=== PATIENT | male | born 1950 | race Caucasian/White ===

== ENCOUNTER → 2016-04-23 | Outpatient (CLI) | payer MEDICARE ==
[~2016-04-23] MED LIST: *XRAY -; /WARF5TA; ACET65TA; ALBUTEROL INHALATION; AMIT100T; AMITRIP100 PO; AMITRIP50 PO; BPMONITOR; DYAZ37.5; LEVAQUI250 PO; LODINE; LODINE PO; LOVENOX; MAXZIDE25 PO; OMEP20TA7; OXYCODONE IR; OXYIR5 PO; PRILOSEC20 PO; PROV90AE; VARE05TA; ZANTAC150 PO; ZANTAC300 PO; ZITHROZPAK PO; [UNRECOGNIZED DRUG - CODE] PO
--- NOTE | 2016-04-23 14:50 | RADONC ---
RADIATION ONCOLOGY CONSULTATION NOTE DATE: 04/23/2016 DIAGNOSIS: Prostate cancer. STAGE: Stage IV, [id number]. ECOG PERFORMANCE STATUS: 1 CONSULTATION NOTE: Mr. Mackenzie is a pleasant 65-year-old white male with the diagnosis of a high-risk poorly differentiated Marco A score 9 (5-4) adenocarcinoma of the prostate involving every core and every portion of every core of the biopsy site with a PSA level of 140. He is presenting today for discussion of definitive external beam radiation therapy with IMRT/IGRT combined with androgen deprivation therapy. HISTORY OF PRESENT ILLNESS: The patient was in his usual state of health but began developing urinary retention symptoms and obstructive symptoms. He was seen by his urologist and a PSA was done on 02/24/2016, which was found to be 140. On 03/17/2016 the patient underwent prostatic the biopsy and every single core was involved with highly aggressive prostatic adenocarcinoma. The majority of them were Hume score 9 (5-4) with a few Marco A score 9 (4-5) specimens. Tumor involved the entire core of all specimens. The patient had a bone scan done on 03/27/2016 which showed some scattered arthritic uptake without compelling evidence of metastatic disease. I have a CT scan done on 03/20/2016 which does not mention lymphadenopathy. Dr. Darnell's note however mentions that there was possibly a 2 cm left-sided iliac lymph node. That would make this a stage IV high-grade high-risk malignancy, [id number]. PAST MEDICAL HISTORY: The patient's past medical history is positive for some type of jaundice/hepatitis event as a child. He also has a history of arthritis. He reports that he had a stroke 8 years ago. He has hypertension, diabetes and multiple urinary tract infections. He has had some hematuria. He has had knee replacements in the past. He had three surgeries on the right hand. He had a tonsillectomy and an appendectomy in the past. He reports that he has a metal plate in his chest. ALLERGIES: The patient has no known drug allergies. SOCIAL HISTORY: The patient had smoked 3 packs of cigarettes a day for 45 years. He quit in 2007. He does not abuse alcohol. FAMILY HISTORY: The patient's family history is positive for sister with some kind of cancer. There is no family history of prostate cancer. REVIEW OF SYSTEMS: The patient's review of systems is positive for physical limitations. This may be due to his excess weight and arthritis. He reports some occasional dizziness and some loss of vision. He also some hearing loss, generalized aches and pains, shortness of breath, difficulty initiating and completing urination as well as some burning upon urination. He also has occasional hematuria. His bowel movements are within normal limits. PHYSICAL EXAMINATION: The patient is a well-developed, well-nourished male in no acute distress. HEENT exam is normocephalic, atraumatic. Extraocular movements are intact. There is no palpable cervical, supraclavicular, infraclavicular, axillary, or inguinal lymphadenopathy present. Lungs are clear to auscultation and percussion. Heart has a regular rate and rhythm. Abdomen is benign with no hepatosplenomegaly, masses, or tenderness. Rectal examination reveals a normal anal sphincter tone. His prostate is smooth with no evidence of nodularity. Skeletal examination reveals no tenderness to pressure or percussion of the bony skeleton. Extremities reveal no clubbing, cyanosis, or edema. Neurologic exam is grossly intact as is the remainder of the physical examination. MEDICAL NECESSITY: IMRT/IGRT is clinically indicated for the highly conformal dose planning required. The target volume is in close proximity to critical structures, such as the rectum, bladder, small bowel, and femoral heads. The volume of interest must be covered with narrow margins to adequately protect immediately adjacent structures. The plan requires interpretation of complex testing such as CT localization. As noted above, special planning (IMRT) and localizing (IGRT) is required and essential to maximally protect sensitive normal tissue structures which cannot be accomplished using conventional 3-dimensional planning. IMAGING: I personally reviewed the patient's CT scan of the abdomen and pelvis done on 03/20/2016 which does show an enlarged prostate with ill-defined borders that appear to be pressing on the bladder. ASSESSMENT: I do believe the patient is a candidate for external beam radiation therapy with IMRT/IGRT and I have so informed him. I have discussed with the patient in detail the potential benefits as well as possible acute and chronic sequelae of external beam radiation therapy. We have discussed the logistics of treatment planning, simulation, and subsequent fractionated daily radiation treatments. I specifically believe in this patient that IMRT/IGRT would be of benefit. We will need to treat the patient's lymph nodes, especially in light of the possibly enlarged lymph node in the iliac chain. This would bring the radiation into close proximity of small bowel and other normal structures. In order to minimize damage to those structures, IMRT with IGRT will be necessary. A much better dose distribution can be achieved with this versus 3D conformal treatments. I have referred the patient back to Dr. Darnell for placement of fiducial markers and radiation treatment planning will begin subsequently. He has already begun his androgen deprivation therapy with a Lupron shot on April 12. Thank you for allowing us to participate in the care of this very pleasant gentleman. If I could be of any further assistance or provide you with any information, please free to contact me at anytime. cc: MD Albert Floyd
== END ==
LOC: M ONCR 09:52
PROVIDERS: ATTEND Radiology Radiation Oncology
DX: C61 Malignant neoplasm of prostate (principal)

== ENCOUNTER → 2016-05-05 | Outpatient (CLI) | payer MEDICARE ==
--- NOTE | 2016-05-05 11:00 | REP ---
Transrectal prostate sonography: History: Prostate cancer. Fiducial marker placement. Findings: Transrectal prostate sonographic guidance is provided Dr. Darnell who presents placed prostate fiducial markers with transrectal ultrasound guided approach. Signed by Francisco Lopez MD 05/05/2016 10:50 A
== END ==
LOC: M SMT 08:50
PROVIDERS: ATTEND Urology
DX: C61 Malignant neoplasm of prostate (principal)
CPT/HCPCS: 55876; 76872; A4648

== ENCOUNTER 2016-05-20 15:59 | Outpatient (RCR) | payer MEDICARE ==
--- NOTE | 2016-05-22 08:12 | RADONC ---
RADIATION ONCOLOGY SIMULATION NOTE DATE: 05/20/2016 CHART NUMBER: [id number] Mr. Mackenzie was taken to the CT scan for CT simulation of his prostate field. CT was accomplished without difficulty or discomfort. Radiation treatment planning is underway and radiation treatments will begin subsequently. An immobilization device was created again without difficulty or discomfort. It will be used throughout the course of treatment. I was physically present throughout the course of CT simulation.
== END 2016-05-26 ==
LOC: M ONCR 15:59
PROVIDERS: ATTEND Radiology Radiation Oncology
DX: C61 Malignant neoplasm of prostate (principal)

== ENCOUNTER → 2016-05-20 | Outpatient (CLI) | payer MEDICARE | LOC: M RAD 13:51 | PROVIDERS: ATTEND Radiology Radiation Oncology | DX: C61 Malignant neoplasm of prostate (principal) ==

== ENCOUNTER 2016-05-27 10:53 | Outpatient (RCR) | payer MEDICARE ==
--- NOTE | 2016-06-02 08:03 | RADONC ---
RADIATION ONCOLOGY PROGRESS NOTE DATE: 06/01/2016 Mr. Mackenzie is presently at a dose of 360 cGy to his prostate and is tolerating treatments quite well at this point with no complaints related to his radiation therapy. He is having no urinary or bowel difficulties and no bone pain. The patient's review of systems is noncontributory. He denies nausea, vomiting, fevers, chills, night sweats, diplopia, headaches, anxiety or depression, anorexia, weight loss, visual disturbances, chest pain, urinary or bowel difficulties, bone pain, or neurological problems. PHYSICAL EXAMINATION: The patient's skin is in good condition with no evidence of radiation change present. There is no moist or dry desquamation. The remainder of his physical exam remains unchanged. Mr. Mackenzie is tolerating treatments quite well and radiation will continue as scheduled.
--- NOTE | 2016-06-08 12:48 | RADONC ---
RADIATION ONCOLOGY PROGRESS NOTE DATE: 06/08/2016 CHART NUMBER: [id number] Mr. Mackenzie is presently at a dose at of 1260 cGy to his prostate and is tolerating treatments quite well at this point. The patient reports an increase in urinary hesitancy. He says he is still able to empty his bladder but the stream is rather slow. The patient has no other complaints related to his radiation therapy or disease. He is having no bowel problems. The patient's review of systems is positive for urinary hesitancy but is otherwise noncontributory. He denies nausea, vomiting, fevers, chills, night sweats, diplopia, headaches, anxiety or depression, anorexia, weight loss, visual disturbances, chest pain, bowel difficulties, bone pain, or neurological problems. PHYSICAL EXAMINATION: The patient's skin is in good condition with no evidence of radiation change present. There is no moist or dry desquamation. The remainder of his physical exam remains unchanged. Mr. Mackenzie is tolerating treatments quite well and radiation will continue as scheduled.
[2016-06-11] MEDS ORDERED: DEXA2TA PO (09:39)
--- NOTE | 2016-06-22 10:53 | RADONC ---
RADIATION ONCOLOGY PROGRESS NOTE: DATE: 06/22/2016 CHART NO: [id number] Mr. Mackenzie is presently at a dose of 2340 cGy to his prostate and is tolerating treatments quite well at this point with no complaints related to his radiation therapy. He is having no significant urinary problems now on Decadron. He is having no bowel difficulties. No bone pain. REVIEW OF SYSTEMS: The patient's review of systems is noncontributory. He denies nausea, vomiting, fevers, chills, night sweats, diplopia, headaches, anxiety or depression, anorexia, weight loss, visual disturbances, chest pain, urinary or bowel difficulties, bone pain, or neurological problems. PHYSICAL EXAMINATION: The patient's skin is in good condition with no evidence of radiation change present. There is no moist or dry desquamation. The remainder of his physical exam remains unchanged. Mr. Mackenzie is tolerating treatments quite well and radiation will continue as scheduled. He is having no difficulties now on steroids and we will continue him on that for the present time.
== END 2016-06-26 ==
LOC: M ONCR 10:53
PROVIDERS: ATTEND Radiology Radiation Oncology
DX: C61 Malignant neoplasm of prostate (principal)

== ENCOUNTER → 2016-06-09 | Outpatient (CLI) | payer MEDICARE ==
[~2016-06-09] MED LIST changes: +DEXA2TA PO
== END ==
LOC: M ONCR 10:15
PROVIDERS: ATTEND Radiology Radiation Oncology
DX: C61 Malignant neoplasm of prostate (principal); R30.0 Dysuria

== ENCOUNTER 2016-06-29 08:51 | Outpatient (RCR) | payer OTHER, MEDICARE ==
--- NOTE | 2016-06-30 07:37 | RADONC ---
RADIATION ONCOLOGY PROGRESS NOTE DATE: 06/29/2016 CHART NUMBER: [id number]. PROGRESS NOTE: Mr. Mackenzie is presently at a dose of 3240 cGy to his prostate and is tolerating treatments quite well at this point with no significant difficulties related to his radiation therapy. He is urinating without difficulty. He does have some hematuria. REVIEW OF SYSTEMS: The patient's review of systems is positive for hematuria. He is also using some Decadron in order to continue to pee without difficulty. His review of systems is otherwise noncontributory. Denies nausea, vomiting, fevers, chills, night sweats, diplopia, headaches, anxiety or depression, anorexia, weight loss, visual disturbances, chest pain, urinary or bowel difficulties, bone pain, or neurological problems. She denies standard review of systems. PHYSICAL EXAMINATION: The patient's skin is in good condition with no evidence of radiation change present. There is no moist or dry desquamation. The remainder of his physical exam remains unchanged. Mr. Mackenzie is tolerating treatments quite well and radiation will continue as scheduled.
--- NOTE | 2016-07-07 07:00 | RADONC ---
RADIATION ONCOLOGY PROGRESS NOTE DATE: 07/06/2016 CHART NUMBER: [id number]. PROGRESS NOTE: Mr. Mackenzie is presently at a dose of 4140 cGy to his prostate and is tolerating treatments quite well at this point with no complaints related to his radiation therapy. He is having no urinary or bowel difficulties and no bone pain. REVIEW OF SYSTEMS: The patient's review of systems is noncontributory. Denies nausea, vomiting, fevers, chills, night sweats, diplopia, headaches, anxiety or depression, anorexia, weight loss, visual disturbances, chest pain, urinary or bowel difficulties, bone pain, or neurological problems. PHYSICAL EXAMINATION: The patient's skin is in good condition with no evidence of radiation change present. There is no moist or dry desquamation. The remainder of his physical exam remains unchanged. Mr. Mackenzie is tolerating treatments quite well and radiation will continue as scheduled.
--- NOTE | 2016-07-13 10:01 | RADONC ---
RADIATION ONCOLOGY PROGRESS NOTE DATE: 07/13/2016 CHART NUMBER: [id number] Mr. Mackenzie is presently at a dose of 5040 cGy to his prostate and is tolerating treatments quite well at this point with no complaints related to his radiation therapy. He is having no urinary or bowel difficulties and no bone pain at this time. His hematuria resolved once he stopped taking aspirin. REVIEW OF SYSTEMS: The patient's review of systems is noncontributory. Denies nausea, vomiting, fevers, chills, night sweats, diplopia, headaches, anxiety or depression, anorexia, weight loss, visual disturbances, chest pain, urinary or bowel difficulties, bone pain, or neurological problems. PHYSICAL EXAMINATION: The patient's skin is in good condition with no evidence of moist or dry desquamation. The remainder of his physical exam remains unchanged. Mr. Mackenzie is tolerating treatments quite well and radiation will continue as scheduled.
--- NOTE | 2016-07-21 09:18 | RADONC ---
RADIATION ONCOLOGY PROGRESS NOTE DATE: 07/20/2016 CHART NUMBER: [id number] Mr. Mackenzie is presently at a dose of 5940 cGy to his prostate and is tolerating treatments quite well at this point with no complaints related to his radiation therapy. He is having no urinary or bowel difficulties and no bone pain. REVIEW OF SYSTEMS: The patient's review of systems is noncontributory. He denies nausea, vomiting, fevers, chills, night sweats, diplopia, headaches, anxiety or depression, anorexia, weight loss, visual disturbances, chest pain, urinary or bowel difficulties, bone pain or neurological problems. PHYSICAL EXAMINATION The patient's skin is in good condition with no evidence of moist or dry desquamation. The remainder of the physical exam remains unchanged. Mr. Mackenzie is tolerating treatments quite well and radiation will continue as scheduled.
== END 2016-07-26 ==
LOC: M ONCR 08:51
PROVIDERS: ATTEND Radiology Radiation Oncology
DX: C61 Malignant neoplasm of prostate (principal)

== ENCOUNTER → 2016-07-20 | Outpatient (REF) | payer MEDICARE, OTHER | LOC: M LABDRAWC 16:32 | PROVIDERS: ATTEND Urology | DX: C61 Malignant neoplasm of prostate (principal) ==

== ENCOUNTER → 2016-07-20 | Outpatient (REF) | payer MEDICARE, OTHER ==
[2016-07-21 12:21] LABS: ALBUMIN 3.4 GM/DL (3.2-5.2); ALBUMIN/GLOBULIN RATIO 0.74 (1.00-1.93); BILIRUBIN,TOTAL 0.6 MG/DL (0.2-1.0); CALCIUM LEVEL 9.4 MG/DL (8.8-10.2); CREATININE FOR GFR 1.34 MG/DL (0.70-1.30); GLOMERULAR FILTRATION RATE 56.4 (>49); POTASSIUM SERUM 3.5 MEQ/L (3.5-5.1)
== END ==
LOC: M SFHCCLAY 14:29
PROVIDERS: ATTEND Family Medicine
DX: E11.9 Type 2 diabetes mellitus without complications (principal); E78.00 Pure hypercholesterolemia, unspecified
CPT/HCPCS: 36415; 80053; 80061; 83036; 84153; G0463

== ENCOUNTER 2016-07-27 11:28 | Outpatient (RCR) | payer OTHER, MEDICARE ==
--- NOTE | 2016-07-28 07:42 | RADONC ---
RADIATION ONCOLOGY PROGRESS NOTE DATE: 07/27/2016 CHART NUMBER: [id number] Mr. Mackenzie is presently at a dose of 6660 cGy to his prostate and is tolerating treatments quite well at this point with no significant difficulties related to his radiation therapy. He is having no urinary or bowel difficulties and no bone pain. The patient's review of systems is noncontributory. He denies nausea, vomiting, fevers, chills, night sweats, diplopia, headaches, anxiety or depression, anorexia, weight loss, visual disturbances, chest pain, urinary or bowel difficulties, bone pain, or neurological problems. PHYSICAL EXAMINATION: The patient's skin is in good condition with no evidence of moist or dry desquamation. The remainder of his physical exam remains unchanged. Mr. Mackenzie is tolerating treatments quite well and radiation will continue as scheduled.
--- NOTE | 2016-08-03 11:24 | RADONC ---
RADIATION ONCOLOGY PROGRESS NOTE: DATE: 08/03/2016 CHART NO: [id number] Mr. Mackenzie is presently at a dose of 7560 cGy to his prostate and is tolerating treatments quite well at this point with no significant difficulties related to his radiation therapy other than some minimal hematuria and blood in the stools. He reports that there are no blood clots and he only has some slight blood in the urine when urinating or on the toilet tissue. He is having no pain or discomfort. The patient's review of symptoms is positive for his above-mentioned bleeding but is otherwise noncontributory. He denies nausea, vomiting, fevers, chills, night sweats, diplopia, headaches, anxiety or depression, anorexia, weight loss, visual disturbances, chest pain, urinary or bowel difficulties, bone pain, or neurological problems. PHYSICAL EXAMINATION: The patient's skin is in good condition with no evidence of radiation change present. The remainder of his physical exam remains unchanged. Mr. Mackenzie is tolerating treatments quite well and radiation will continue as scheduled.
--- NOTE | 2016-08-05 12:54 | RADONC ---
RADIATION ONCOLOGY TREATMENT SUMMARY DATE: 08/05/2016 CHART NUMBER: [id number] DIAGNOSIS: Prostate cancer stage IV, [id number]. ECOG PERFORMANCE STATUS: 1. TREATMENT SUMMARY: Mr. Mackenzie is a very pleasant 66-year-old white male with the diagnosis what appears to be a high-risk poorly differentiated Marco A score 9 (5-4) adenocarcinoma of the prostate involving every core and every portion of every core of the biopsy site with a PSA level of 140. The patient presented to us for consideration of definitive external beam radiation therapy. We treated the patient to his prostate for a total dose of 7920 cGy delivered in 44 fractions of 180 cGy each over 69 elapsed days from 05/28/2016 through 08/05/2016. The patient's prostate was treated on a linear accelerator utilizing IMRT/IGRT. We initially delivered a dose of 4500 cGy to the prostate, seminal vesicle and first echelon of lymph nodes. This was treated utilizing an 18 MV photon beam. We subsequently coned down to the prostate and seminal vesicles themselves for an additional 900 cGy delivered in five fractions of 180 cGy each, bringing the seminal vesicles to a total dose of 5400 cGy. This was also treated utilizing an 18 MV photon beam. We subsequently coned down to the prostate itself for the remaining 14 fractions to deliver an additional 2520 cGy. This final boost was treated utilizing a 6 MV photon beam. Once again, it brought the prostate to a total dose of 7920 cGy in 44 fractions. Mr. Mackenzie tolerated his treatments quite well and was able to complete therapy as prescribed without interruption. I have scheduled the patient to be seen by me again in 1 month for further followup. He will continue to be followed by his other physicians as well. Thank you for allowing us to participate in the care of this very pleasant gentleman. If I could be of any further assistance or provide you with any further information, please free to contact me anytime. As always warm regards. cc: MD Albert Floyd
== END 2016-08-26 ==
LOC: M ONCR 11:28
PROVIDERS: ATTEND Radiology Radiation Oncology
DX: C61 Malignant neoplasm of prostate (principal)

== ENCOUNTER → 2016-08-28 | Outpatient (REF) | payer MEDICARE, OTHER | LOC: M LABDRAWC 16:29 | PROVIDERS: ATTEND Radiology Radiation Oncology | DX: C61 Malignant neoplasm of prostate (principal) ==

== ENCOUNTER → 2016-09-02 | Outpatient (CLI) | payer MEDICARE, OTHER ==
--- NOTE | 2016-09-03 09:46 | RADONC ---
RADIATION ONCOLOGY FOLLOWUP NOTE DATE: 09/02/2016 CHART NUMBER: [id number] DIAGNOSIS: Prostate cancer STAGE: IV, [id number]. ECOG performance status one. FOLLOWUP NOTE: Mr. Mackenzie is a pleasant 66-year-old white male with the diagnosis of a high-risk poorly differentiated Lamont score 9 (5-4) adenocarcinoma of prostate with a PSA level that was 140 who is presenting to us today for routine followup visit 1 month post completion of external beam radiation therapy. The patient presents today reporting that he is continuing with his Decadron taper. He had initiated Decadron due to difficulties with urination at time of treatment. I had originally given him a Decadron taper and thought that he would be finished with his Decadron at this point. Apparently, the patient had some type of flare up while trying to cut down on Decadron and they stepped back up previous doses. I have given the patient once again instructions to taper the Decadron at this point. I am concerned since he is a diabetic and his blood sugars have been elevated by the Decadron. He and his are aware of these issues and will let me know if they have any further difficulties while withdrawing from Decadron so further instructions can be given as indicated. In addition, the patient had a large subcutaneous cystic-like mass for quite sometime. Apparently, a few days ago he either lanced it or forced it to break open. His has been applying topical antibiotics and Betadine to the region , but there is now a significant cavity present which is quite red and clearly inflamed. He has no other complaints at this time related to his radiation disease or other issues. The patient's review of systems is otherwise noncontributory except for the above. He denies nausea, vomiting, fevers, chills, night sweats, diplopia, headaches, anxiety or depression, anorexia, weight loss, visual disturbances, chest pain, urinary difficulties while on tapering steroids or bowel difficulties. He has no neurological problems. PHYSICAL EXAMINATION: The patient is a well-developed, well-nourished male in no acute distress. HEENT exam is normocephalic, atraumatic. Extraocular movements are intact. There is no palpable cervical, supraclavicular, infraclavicular, axillary, or inguinal lymphadenopathy present. Lungs are clear to auscultation and percussion. Heart has a regular rate and rhythm. Abdominal examination reveals an open wound which appears to enter into his previously large cystic area. There is erythema and bruising extending for several centimeters over the abdomen. It is warm to the touch. Rectal examination reveals a normal anal sphincter tone. His prostate is smooth with no evidence of nodularity. Skeletal examination reveals no tenderness to pressure or percussion of the bony skeleton. Extremities reveal no clubbing, cyanosis, or edema. Neurologic exam is grossly intact, as is the remainder of the physical examination. ASSESSMENT: The patient is clinically doing well with regards to his prostate cancer. As mentioned above, I have given the patient a further Decadron taper schedule and asked him to break up his pills in two and do one half a pill every other day for the next week and then try and discontinue totally. I have asked to continue to monitor his blood sugars throughout this course and keep a close followup with his primary care doctor. If he has any further difficulty with urination once off the Decadron, I have informed them that I will be sending them back to the urologist to obtain his expert opinion as well. I am most concerned at this time about his clearly inflamed abdominal subcutaneous cavity. This patient is a diabetic and this needs immediate attention. In light of the fact that he is being managed closely by Dr. Dove, we have set him up to be seen in Dr. Dove's office later today for immediate evaluation of this region. I will defer care to this abdominal issue and his diabetes to his primary care doctor, Dr. Dove. I did instruct the patient to contact me immediately if there are any difficulties or if he does not see Dr. Dove. I also encouraged him to go to the emergency room if his condition does not improve or worsens. He has my cell phone number and office number in case any issues should develop in the meantime. A PSA was done on 08/28/2016 and is now down to 5.12. cc: MD Albert Floyd MD MTDD
== END ==
LOC: M ONCR 11:15
PROVIDERS: ATTEND Radiology Radiation Oncology
DX: C61 Malignant neoplasm of prostate (principal)
CPT/HCPCS: 87070; 87077; 87186; G0463

== ENCOUNTER → 2016-09-02 | Outpatient (REF) | payer MEDICARE, OTHER | LOC: M SFHCCLAY 16:29 | PROVIDERS: ATTEND Family Medicine | DX: L02.211 Cutaneous abscess of abdominal wall (principal) ==

== ENCOUNTER → 2016-10-21 | Outpatient (REF) | payer MEDICARE, OTHER ==
[2016-10-21 19:45] LABS: ALBUMIN 3.1 GM/DL (3.2-5.2); ALBUMIN/GLOBULIN RATIO 0.78 (1.00-1.93); BILIRUBIN,TOTAL 0.6 MG/DL (0.2-1.0); CREATININE FOR GFR 1.36 MG/DL (0.70-1.30); GLOMERULAR FILTRATION RATE 55.5 (>49); POTASSIUM SERUM 3.6 MEQ/L (3.5-5.1); TOTAL PROTEIN 7.1 GM/DL (6.4-8.2)
== END ==
LOC: M SFHCCLAY 10:18
PROVIDERS: ATTEND Family Medicine
DX: E11.9 Type 2 diabetes mellitus without complications (principal)

== ENCOUNTER → 2016-11-27 | Outpatient (REF) | payer MEDICARE, OTHER ==
[2016-11-27 16:54] LABS: CREATININE FOR GFR 1.31 MG/DL (0.70-1.30); GLOMERULAR FILTRATION RATE 57.9 (>49); POTASSIUM SERUM 4.3 MEQ/L (3.5-5.1)
== END ==
LOC: M SFHCCLAY 11:18
PROVIDERS: ATTEND Family Medicine
DX: C61 Malignant neoplasm of prostate (principal); R60.0 Localized edema

== ENCOUNTER → 2016-12-02 | Outpatient (CLI) | payer MEDICARE, OTHER ==
--- NOTE | 2016-12-03 07:41 | RADONC ---
RADIATION ONCOLOGY FOLLOWUP NOTE DATE: 12/02/2016 CHART NUMBER: [id number]. DIAGNOSIS: Prostate cancer. STAGE: IV, [id number]. ECOG PERFORMANCE STATUS: Zero. FOLLOWUP NOTE: Mr. Mackenzie is a very pleasant, 66-year-old white male with the diagnosis of a high-risk poorly differentiated Marco A score 9 (5-4) adenocarcinoma of the prostate with a PSA level of 140, who is presenting to us today for routine followup visit 3 months post completion of external beam radiation therapy. The patient presents today reporting that he is doing quite well with no complaints at this time related to his radiation therapy or disease. He is having some cardiac difficulties. REVIEW OF SYSTEMS: The patient's review of systems is positive for tachycardia for which he is now taking medication. It is otherwise noncontributory. Denies nausea, vomiting, fevers, chills, night sweats, diplopia, headaches, anxiety or depression, anorexia, weight loss, visual disturbances, chest pain, urinary or bowel difficulties, bone pain, or neurological problems. PHYSICAL EXAMINATION: The patient is a well-developed, well-nourished male in no acute distress. HEENT exam is normocephalic, atraumatic. Extraocular movements are intact. There is no palpable cervical, supraclavicular, infraclavicular, axillary, or inguinal lymphadenopathy present. Lungs are clear to auscultation and percussion. Heart has a regular rate and rhythm. Abdomen is benign with no hepatosplenomegaly, masses, or tenderness. Rectal examination reveals a normal anal sphincter tone. His prostate is smooth with no evidence of nodularity. Skeletal examination reveals no tenderness to pressure or percussion of the bony skeleton. Extremities reveal no clubbing, cyanosis, or edema. Neurologic exam is grossly intact, as is the remainder of the physical examination. ASSESSMENT: The patient is clinically stable at this time and will be seen by us again in 6 months for further followup. He will also continue to be followed by his other physicians as well. cc: MD Albert Floyd MD
== END ==
LOC: M ONCR 10:01
PROVIDERS: ATTEND Radiology Radiation Oncology
DX: C61 Malignant neoplasm of prostate (principal)

== ENCOUNTER → 2017-02-11 | Outpatient (REF) | payer MEDICARE | LOC: M SMT 13:00 | PROVIDERS: ATTEND Nurse Practitioner Family | DX: R30.0 Dysuria (principal) | CPT/HCPCS: 51798; 81001; 87086; G0463 ==

== ENCOUNTER → 2017-03-11 | Outpatient (REF) | payer MEDICARE, OTHER | LOC: M SFHCCLAY 11:17 | PROVIDERS: ATTEND Urology | DX: C61 Malignant neoplasm of prostate (principal) ==

== ENCOUNTER → 2017-04-28 | Outpatient (REF) | payer MEDICARE, OTHER ==
[2017-04-28 18:30] LABS: ESTIMATED AVERAGE GLUCOSE 280 MG/DL (60-110); HEMOGLOBIN A1c 11.4 %
[2017-04-28 18:31] LABS: ALBUMIN 3.5 GM/DL (3.2-5.2); ALBUMIN/GLOBULIN RATIO 0.81 (1.00-1.93); ALKALINE PHOSPHATASE 186 U/L (45-117); ALT/SGPT 36 U/L (12-78); ANION GAP 8 MEQ/L (8-16); AST/SGOT 16 U/L (7-37); BILIRUBIN,TOTAL 0.7 MG/DL (0.2-1.0); BLOOD UREA NITROGEN 15 MG/DL (7-18); CARBON DIOXIDE LEVEL 31 MEQ/L (21-32); CHLORIDE LEVEL 96 MEQ/L (98-107); CREATININE FOR GFR 1.46 MG/DL (0.70-1.30); GLOMERULAR FILTRATION RATE 51.1 (>49); GLUCOSE, FASTING 396 MG/DL (70-100); POTASSIUM SERUM 3.7 MEQ/L (3.5-5.1); SODIUM LEVEL 135 MEQ/L (136-145); TOTAL PROTEIN 7.8 GM/DL (6.4-8.2)
== END ==
LOC: M SFHCCLAY 11:57
DX: E11.9 Type 2 diabetes mellitus without complications (principal)
CPT/HCPCS: 80053

== ENCOUNTER → 2017-05-04 | Outpatient (REF) | payer MEDICARE, OTHER | LOC: M SMT 13:04 | DX: R30.0 Dysuria (principal); C61 Malignant neoplasm of prostate; R35.0 Frequency of micturition | CPT/HCPCS: 87088; 87186 ==

== ENCOUNTER → 2017-05-19 | Outpatient (REF) | payer MEDICARE, OTHER | LOC: M LABSMT 11:20 | DX: N39.0 Urinary tract infection, site not specified (principal) | CPT/HCPCS: 87086 ==

== ENCOUNTER → 2017-06-14 | Outpatient (REF) | payer MEDICARE, OTHER ==
[2017-06-14 17:14] LABS: PROSTATIC SPECIFIC AG MONITOR 1.11 NG/ML (< 4.0)
== END ==
LOC: M LABDRAWC 16:09
DX: C61 Malignant neoplasm of prostate (principal)
CPT/HCPCS: 84153

== ENCOUNTER → 2017-06-16 | Outpatient (CLI) | payer MEDICARE, OTHER | LOC: M ONCR 09:58 | DX: Z08 Encounter for follow-up examination after completed treatment for malignant neoplasm (principal); Z85.46 Personal history of malignant neoplasm of prostate | CPT/HCPCS: G0463 ==

== ENCOUNTER → 2017-07-12 | Outpatient (REF) | payer MEDICARE, OTHER ==
[2017-07-12 12:13] LABS: ANION GAP 9 MEQ/L (8-16); BLOOD UREA NITROGEN 19 MG/DL (7-18); CALCIUM LEVEL 9.1 MG/DL (8.8-10.2); CARBON DIOXIDE LEVEL 28 MEQ/L (21-32); CHLORIDE LEVEL 98 MEQ/L (98-107); CREATININE FOR GFR 1.38 MG/DL (0.70-1.30); GLOMERULAR FILTRATION RATE 54.4 (>49); GLUCOSE, FASTING 320 MG/DL (70-100); POTASSIUM SERUM 4.2 MEQ/L (3.5-5.1); SODIUM LEVEL 135 MEQ/L (136-145)
[2017-07-12 15:29] LABS: ESTIMATED AVERAGE GLUCOSE 263 MG/DL (60-110); HEMOGLOBIN A1c 10.8 %
== END ==
LOC: M SFHCCLAY 09:26
DX: E11.9 Type 2 diabetes mellitus without complications (principal)
CPT/HCPCS: 83036

== ENCOUNTER → 2017-10-11 | Outpatient (REF) | payer MEDICARE, OTHER ==
[2017-10-11 17:12] LABS: ALBUMIN 3.1 GM/DL (3.2-5.2); ALBUMIN/GLOBULIN RATIO 0.76 (1.00-1.93); ALKALINE PHOSPHATASE 124 U/L (45-117); ALT/SGPT 34 U/L (12-78); ANION GAP 12 MEQ/L (8-16); AST/SGOT 17 U/L (7-37); BILIRUBIN,TOTAL 0.9 MG/DL (0.2-1.0); BLOOD UREA NITROGEN 19 MG/DL (7-18); CALCIUM LEVEL 8.8 MG/DL (8.8-10.2); CARBON DIOXIDE LEVEL 26 MEQ/L (21-32); CHLORIDE LEVEL 100 MEQ/L (98-107); CHOLESTEROL LEVEL 140 MG/DL (<200); CHOLESTEROL RISK RATIO 3.111 (<5); CREATININE FOR GFR 1.27 MG/DL (0.70-1.30); GLOMERULAR FILTRATION RATE 59.9 (>49); GLUCOSE, FASTING 229 MG/DL (70-100); HDL CHOLESTEROL 45 MG/DL (>40); LDL CHOLESTEROL 59.2 MG/DL (<100); NON-HDL-C 95 MG/DL; POTASSIUM SERUM 4.4 MEQ/L (3.5-5.1); PROSTATIC SPECIFIC AG MONITOR 2.74 NG/ML (< 4.0); SODIUM LEVEL 138 MEQ/L (136-145); TOTAL PROTEIN 7.2 GM/DL (6.4-8.2); TRIGLYCERIDES LEVEL 179 MG/DL (<150)
[2017-10-11 17:17] LABS: CREATININE, URINE 55.3 MG/DL; MALB URINE SIEMENS 5.4 MG/L; MAU/CREAT RATIO 9.7 MCG/MG (0.0-30.0)
[2017-10-11 18:04] LABS: ESTIMATED AVERAGE GLUCOSE 243 MG/DL (60-110); HEMOGLOBIN A1c 10.1 %
== END ==
LOC: M SFHCCLAY 10:02
DX: C61 Malignant neoplasm of prostate (principal); E11.9 Type 2 diabetes mellitus without complications; E78.00 Pure hypercholesterolemia, unspecified
CPT/HCPCS: 80053

== ENCOUNTER → 2017-12-01 | Outpatient (CLI) | payer MEDICARE, OTHER | LOC: M ONCR 10:18 | DX: C61 Malignant neoplasm of prostate (principal) | CPT/HCPCS: G0463 ==

== ENCOUNTER → 2017-12-31 | Outpatient (REF) | payer MEDICARE, OTHER ==
[2017-12-31 16:46] LABS: ANION GAP 10 MEQ/L (8-16); BLOOD UREA NITROGEN 18 MG/DL (7-18); CALCIUM LEVEL 8.8 MG/DL (8.8-10.2); CARBON DIOXIDE LEVEL 28 MEQ/L (21-32); CHLORIDE LEVEL 97 MEQ/L (98-107); GLOMERULAR FILTRATION RATE 53.5 (>49); GLUCOSE, FASTING 329 MG/DL (70-100); POTASSIUM SERUM 4.2 MEQ/L (3.5-5.1); SODIUM LEVEL 135 MEQ/L (136-145)
[2017-12-31 17:02] LABS: TESTOSTERONE < 7 NG/DL (241-827)
== END ==
LOC: M LABSMT 11:01 → M LABDRAWC 11:08
DX: C61 Malignant neoplasm of prostate (principal)
CPT/HCPCS: 84403

== ENCOUNTER → 2018-01-05 | Outpatient (CLI) | payer MEDICARE, OTHER ==
[~2018-01-05] MED LIST changes: -*XRAY -; -/WARF5TA; -ACET65TA; -ALBUTEROL INHALATION; -AMIT100T; -AMITRIP100 PO; -AMITRIP50 PO; -BPMONITOR; -DEXA2TA PO; -DYAZ37.5; +ISOVUE-370 76% 100ML VIAL (Q9967) As Ordered; -LEVAQUI250 PO; -LODINE; -LODINE PO; -LOVENOX; -MAXZIDE25 PO; -OMEP20TA7; -OXYCODONE IR; -OXYIR5 PO; -PRILOSEC20 PO; -PROV90AE; -VARE05TA; -ZANTAC150 PO; -ZANTAC300 PO; -ZITHROZPAK PO; -[UNRECOGNIZED DRUG - CODE] PO
== END ==
LOC: M RAD 09:34
DX: R59.0 Localized enlarged lymph nodes (principal); K76.0 Fatty (change of) liver, not elsewhere classified; K80.00 Calculus of gallbladder with acute cholecystitis without obstruction; K43.9 Ventral hernia without obstruction or gangrene; R97.21 Rising PSA following treatment for malignant neoplasm of prostate
CPT/HCPCS: Q9967

== ENCOUNTER → 2018-01-11 | Outpatient (REF) | payer MEDICARE, OTHER ==
[2018-01-11 17:21] LABS: PROSTATIC SPECIFIC AG MONITOR 9.34 NG/ML (< 4.0)
== END ==
LOC: M LABSMT 11:34
DX: C61 Malignant neoplasm of prostate (principal)
CPT/HCPCS: 84153

== ENCOUNTER → 2018-01-17 | Outpatient (REF) | payer MEDICARE, OTHER ==
[2018-01-17 17:09] LABS: ALBUMIN 3.4 GM/DL (3.2-5.2); ALBUMIN/GLOBULIN RATIO 0.77 (1.00-1.93); ALKALINE PHOSPHATASE 191 U/L (45-117); ALT/SGPT 33 U/L (12-78); ANION GAP 10 MEQ/L (8-16); AST/SGOT 13 U/L (7-37); BILIRUBIN,TOTAL 0.7 MG/DL (0.2-1.0); BLOOD UREA NITROGEN 18 MG/DL (7-18); CALCIUM LEVEL 8.9 MG/DL (8.8-10.2); CARBON DIOXIDE LEVEL 29 MEQ/L (21-32); CHLORIDE LEVEL 96 MEQ/L (98-107); CREATININE FOR GFR 1.57 MG/DL (0.70-1.30); GLOMERULAR FILTRATION RATE 46.9 (>49); GLUCOSE, FASTING 368 MG/DL (70-100); POTASSIUM SERUM 3.6 MEQ/L (3.5-5.1); SODIUM LEVEL 135 MEQ/L (136-145); TOTAL PROTEIN 7.8 GM/DL (6.4-8.2)
[2018-01-17 17:22] LABS: ESTIMATED AVERAGE GLUCOSE 260 MG/DL (60-110); HEMOGLOBIN A1c 10.7 %
[2018-01-19 10:38] LABS: HEP C VIRUS AB SCREEN MEDICARE < 0.0 INDEX (<0.8)
== END ==
LOC: M SFHCCLAY 12:01
DX: E11.9 Type 2 diabetes mellitus without complications (principal); Z11.59 Encounter for screening for other viral diseases; Z23 Encounter for immunization
CPT/HCPCS: 80053

== ENCOUNTER → 2018-02-22 | Outpatient (REF) | payer MEDICARE, OTHER ==
[2018-02-22 17:14] LABS: PROSTATIC SPECIFIC AG MONITOR 2.3 NG/ML (< 4.0)
== END ==
LOC: M SFHCCLAY 11:28
DX: R97.21 Rising PSA following treatment for malignant neoplasm of prostate (principal)
CPT/HCPCS: 84153

== ENCOUNTER → 2018-04-12 | Outpatient (REF) | payer MEDICARE, OTHER ==
[~2018-04-12] MED LIST changes: +*XRAY -; +/WARF5TA; +ACET65TA; +ALBUTEROL INHALATION; +AMIT100T; +AMITRIP100 PO; +AMITRIP50 PO; +BPMONITOR; +DEXA2TA PO; +DYAZ37.5; -ISOVUE-370 76% 100ML VIAL (Q9967) As Ordered; +LEVAQUI250 PO; +LODINE; +LODINE PO; +LOVENOX; +MAXZIDE25 PO; +OMEP20TA7; +OXYCODONE IR; +OXYIR5 PO; +PRILOSEC20 PO; +PROV90AE; +VARE05TA; +ZANTAC150 PO; +ZANTAC300 PO; +ZITHROZPAK PO; +[UNRECOGNIZED DRUG - CODE] PO
== END ==
LOC: M SFHCCLAY 11:13
PROVIDERS: ATTEND Urology
DX: C61 Malignant neoplasm of prostate (principal)

== ENCOUNTER → 2018-04-25 | Outpatient (REF) | payer MEDICARE, OTHER ==
[2018-04-25 17:22] LABS: ALBUMIN 3.7 GM/DL (3.2-5.2); ALT/SGPT 26 U/L (12-78); BILIRUBIN,TOTAL 0.5 MG/DL (0.2-1.0); BLOOD UREA NITROGEN 14 MG/DL (7-18); CALCIUM LEVEL 9.4 MG/DL (8.8-10.2); CARBON DIOXIDE LEVEL 28 MEQ/L (21-32); CHLORIDE LEVEL 98 MEQ/L (98-107); CREATININE FOR GFR 1.26 MG/DL (0.70-1.30); GLOMERULAR FILTRATION RATE > 60.0 (>49); GLUCOSE, FASTING 280 MG/DL (70-100); POTASSIUM SERUM 4.1 MEQ/L (3.5-5.1); SODIUM LEVEL 135 MEQ/L (136-145); TOTAL PROTEIN 7.9 GM/DL (6.4-8.2)
[2018-04-25 18:14] LABS: HEMOGLOBIN A1c 9.6 %
== END ==
LOC: M SFHCCLAY 11:27
PROVIDERS: ATTEND Family Medicine
DX: E11.9 Type 2 diabetes mellitus without complications (principal)
CPT/HCPCS: 36415; 80053; 83036; G0463

== ENCOUNTER → 2018-05-27 | Outpatient (REF) | payer MEDICARE, OTHER | LOC: M SFHCCLAY 10:13 | PROVIDERS: ATTEND Urology | DX: C61 Malignant neoplasm of prostate (principal); Z79.01 Long term (current) use of anticoagulants ==

== ENCOUNTER → 2018-07-29 | Outpatient (REF) | payer MEDICARE, OTHER ==
[~2018-07-29] MED LIST changes: -/WARF5TA; +COUM1TAB17
[2018-07-29 18:39] LABS: HEMOGLOBIN A1c 9.6 %
[2018-07-29 18:42] LABS: ALBUMIN 3.5 GM/DL (3.2-5.2); BILIRUBIN,TOTAL 0.5 MG/DL (0.2-1.0); CALCIUM LEVEL 8.9 MG/DL (8.8-10.2); CREATININE FOR GFR 1.31 MG/DL (0.70-1.30); GLOMERULAR FILTRATION RATE 57.6 (>42); POTASSIUM SERUM 4.3 MEQ/L (3.5-5.1)
== END ==
LOC: M SFHCCAPE 11:13
PROVIDERS: ATTEND Family Medicine
DX: C61 Malignant neoplasm of prostate (principal)

== ENCOUNTER → 2018-10-24 | Outpatient (REF) | payer MEDICARE, OTHER | LOC: M SFHCCLAY 11:59 | PROVIDERS: ATTEND Family Medicine | DX: E11.9 Type 2 diabetes mellitus without complications (principal); C61 Malignant neoplasm of prostate; Z53.8 Procedure and treatment not carried out for other reasons ==

== ENCOUNTER → 2018-10-26 | Outpatient (REF) | payer MEDICARE, OTHER ==
[2018-10-26 17:17] LABS: ALBUMIN 3.4 GM/DL (3.2-5.2); BILIRUBIN,TOTAL 0.5 MG/DL (0.2-1.0); CALCIUM LEVEL 9.3 MG/DL (8.8-10.2); CREATININE FOR GFR 1.31 MG/DL (0.70-1.30); GLOMERULAR FILTRATION RATE 57.6 (>42); POTASSIUM SERUM 4.3 MEQ/L (3.5-5.1); PROSTATIC SPECIFIC AG MONITOR 0.67 NG/ML (< 4.00)
[2018-10-26 18:06] LABS: HEMOGLOBIN A1c 10.1 %
== END ==
LOC: M SFHCCLAY 10:58
PROVIDERS: ATTEND Family Medicine
DX: E11.9 Type 2 diabetes mellitus without complications (principal); C61 Malignant neoplasm of prostate

== ENCOUNTER → 2019-01-16 | Outpatient (REF) | payer MEDICARE, OTHER ==
[2019-01-16 17:14] LABS: PROSTATIC SPECIFIC AG MONITOR 1.14 NG/ML (< 4.00)
== END ==
LOC: M SFHCCLAY 11:29
PROVIDERS: ATTEND Urology
DX: C61 Malignant neoplasm of prostate (principal)

== ENCOUNTER → 2019-01-23 | Outpatient (REF) | payer MEDICARE, OTHER ==
[~2019-01-23] MED LIST changes: +AMIT100TA PO; +ASPI81TA85 PO; +ATOR1TAB21 PO; +CALC-218 PO; +CHLO125TA PO; +CLOP75TA2 PO; +ERLE60TA PO; +ETOD30CA PO; +FLOM0.4C39 PO; +GLIP-162 PO; +INVO300T PO; +METF10004 PO; +METO37.5 PO; +MULTCAP PO; +OMEG10002 PO; +OMEP-218 PO; +OXYB5TAB10 PO; +OXYC-517 PO; +[UNRECOGNIZED DRUG - CODE] PO
[2019-01-23 16:33] LABS: ALBUMIN 3.5 GM/DL (3.2-5.2); BILIRUBIN,TOTAL 0.8 MG/DL (0.2-1.0); CALCIUM LEVEL 9.3 MG/DL (8.8-10.2); CREATININE FOR GFR 1.32 MG/DL (0.70-1.30); GLOMERULAR FILTRATION RATE 57.1 (>42); POTASSIUM SERUM 4.3 MEQ/L (3.5-5.1); TOTAL PROTEIN 7.4 GM/DL (6.4-8.2)
[2019-01-23 16:53] LABS: HEMOGLOBIN A1c 10.4 %
== END ==
LOC: M SFHCCLAY 11:36
PROVIDERS: ATTEND Family Medicine
DX: E11.9 Type 2 diabetes mellitus without complications (principal)
CPT/HCPCS: 80053; 83036; 90682; G0008

== ENCOUNTER → 2019-02-13 | Outpatient (CLI) | payer MEDICARE ==
[~2019-02-13] MED LIST changes: +PROHANCE 279.3MG/ML 5ML VIAL (A9576) As Ordered ONE
--- NOTE | 2019-02-13 13:24 | REP ---
MULTIPARAMETRIC PROSTATE MRI STUDY WITH AND WITHOUT IV CONTRAST: HISTORY: Restaging prostate cancer. TECHNIQUE: Multiple sequences are obtained in the axial, coronal, and sagittal planes prior to and following the intravenous administration of 6 mL ProHance. Images are evaluated in the navigaya software and regions of interest are identified. No suspicious bone lesion is seen of the visualized pelvic osseous structures. No significant adenopathy is seen in the pelvis. There is no other evidence of mass. Prostate measures 4.0 x 3.0 x 2.5 cm for a total volume of 14.89 mL. The region of interest is identified in the left mid and basilar anterior transitional zone which demonstrates low signal on T2 and diffusion weighted images. The area measures 2.1 x 0.8 x 1.4 cm for a total volume of 1.7 mL. There is predominantly type 1 enhancement within this region. Overall level is suspicious 3 out of 5 with clinically significant cancer equivocal. A second region of interest is identified in the right mid anterior transitional zone measuring 1.6 x 0.4 x 1.0 cm for a total volume of 0.85 mL. There is predominantly low signal on both T2 and diffusion weighted images. There is predominantly type 1 enhancement in this region. Overall level of suspicion is 3 out of 5 with clinically significant cancer equivocal. There are no areas of type 3 enhancement identified. No other focal abnormality is seen in the prostate. Seminal vesicle regions appear unremarkable. IMPRESSION: Two regions of interest identified in the prostate gland as discussed in detail above. No areas of type 3 enhancement. Otherwise no evidence of pelvic adenopathy or extraprostatic mass. No bone lesion. Electronically Signed by Robbie Blair MD 02/14/2019 08:40 P
== END ==
LOC: M RAD 08:15
PROVIDERS: ATTEND Internal Medicine Hematology
DX: C61 Malignant neoplasm of prostate (principal)
CPT/HCPCS: 72197; A9576

== ENCOUNTER → 2019-02-17 | Outpatient (CLI) | payer MEDICARE ==
[~2019-02-17] MED LIST changes: -PROHANCE 279.3MG/ML 5ML VIAL (A9576) As Ordered ONE
--- NOTE | 2019-02-17 15:05 | REP ---
WHOLE BODY BONE SCAN: Following the intravenous administration of 22 mCi of technetium-99m MDP, patient's whole body is imaged in the anterior and posterior projections with additional oblique and lateral views obtained. Comparison made with prior study of 01/05/2018. There is mild scattered arthritic uptake throughout the spine. There is arthritic uptake again seen in the left knee joint. Photopenic right knee prosthesis is again noted. Right tarsal uptake is unchanged. There is no compelling scintigraphic evidence of osseous metastases. Renal and bladder activity are seen. IMPRESSION: Essentially no change compared to the prior study of 01/05/2018. No compelling scintigraphic evidence of osseous metastases. Electronically Signed by Robbie Balir MD 02/20/2019 09:35 A
== END ==
LOC: M RAD 09:22
PROVIDERS: ATTEND Internal Medicine Hematology
DX: C61 Malignant neoplasm of prostate (principal)
CPT/HCPCS: 78306; A9503

== ENCOUNTER → 2019-04-05 | Outpatient (REF) | payer MEDICARE ==
[~2019-04-05] MED LIST changes: +PRED5PAK PO; +ZYTI250T PO
[2019-04-05 17:35] LABS: BASO % 0.6 % (0.0-1.0); EOS # 0.3 10^3/uL (0.0-0.5); EOS % 3.5 % (0.0-3.0); HEMATOCRIT 42.5 % (42.0-52.0); HEMOGLOBIN 13.6 g/dl (13.5-17.5); LYMPH # 1.2 10^3/uL (1.5-5.0); LYMPH % 17.3 % (24.0-44.0); MEAN CORPUSCULAR HEMOGLOBIN 30.2 pg (27.0-33.0); MEAN CORPUSCULAR VOLUME 94.4 fl (80.0-96.0); MONO # 0.5 10^3/uL (0.0-0.8); MONO % 7.2 % (0.0-5.0); NEUTROPHILS % 70.8 % (36.0-66.0); PLATELET COUNT, AUTOMATED 293 10^3/uL (150-450); WHITE BLOOD COUNT 7.1 10^3/uL (4.0-10.0)
[2019-04-05 17:37] LABS: ALBUMIN 3.3 GM/DL (3.2-5.2); BILIRUBIN,TOTAL 0.5 MG/DL (0.2-1.0); CALCIUM LEVEL 9.1 MG/DL (8.8-10.2); CREATININE FOR GFR 1.32 MG/DL (0.70-1.30); GLOMERULAR FILTRATION RATE 57.1 (>42); POTASSIUM SERUM 4.2 MEQ/L (3.5-5.1); PROSTATIC SPECIFIC AG MONITOR 1.94 NG/ML (< 4.00); TOTAL PROTEIN 7.2 GM/DL (6.4-8.2)
== END ==
LOC: M LABDRAWC 16:08
PROVIDERS: ATTEND Internal Medicine Hematology
DX: C61 Malignant neoplasm of prostate (principal)

== ENCOUNTER → 2019-06-21 | Outpatient (REF) | payer MEDICARE, OTHER ==
[~2019-06-21] MED LIST changes: +LUPR45IN IM; +PRED5TA PO
[2019-06-21 16:14] LABS: BASO % 0.4 % (0.0-1.0); EOS # 0.2 10^3/uL (0.0-0.5); EOS % 2.4 % (0.0-3.0); HEMATOCRIT 43.7 % (42.0-52.0); HEMOGLOBIN 13.9 g/dl (13.5-17.5); LYMPH # 1.2 10^3/uL (1.5-5.0); LYMPH % 14.6 % (24.0-44.0); MEAN CORPUSCULAR HEMOGLOBIN 30.1 pg (27.0-33.0); MEAN CORPUSCULAR HGB CONC 31.8 g/dl (32.0-36.5); MEAN CORPUSCULAR VOLUME 94.6 fl (80.0-96.0); MONO # 0.5 10^3/uL (0.0-0.8); MONO % 6.2 % (0.0-5.0); NEUTROPHILS # 6.4 10^3/uL (1.5-8.5); NEUTROPHILS % 75.8 % (36.0-66.0); PLATELET COUNT, AUTOMATED 293 10^3/uL (150-450); RED BLOOD COUNT 4.62 10^6/uL (4.30-6.10); WHITE BLOOD COUNT 8.5 10^3/uL (4.0-10.0)
[2019-06-21 16:20] LABS: ALBUMIN 3.3 GM/DL (3.2-5.2); BILIRUBIN,TOTAL 0.6 MG/DL (0.2-1.0); CALCIUM LEVEL 9.1 MG/DL (8.8-10.2); CREATININE FOR GFR 1.29 MG/DL (0.70-1.30); GLOMERULAR FILTRATION RATE 58.5 (>42); POTASSIUM SERUM 4.1 MEQ/L (3.5-5.1); PROSTATIC SPECIFIC AG MONITOR 2.87 NG/ML (< 4.00); TOTAL PROTEIN 7.6 GM/DL (6.4-8.2)
== END ==
LOC: M LABDRAWC 15:56
PROVIDERS: ATTEND Internal Medicine Hematology
DX: C61 Malignant neoplasm of prostate (principal)

== ENCOUNTER → 2019-07-12 | Outpatient (REF) | payer MEDICARE, OTHER ==
[2019-07-12 16:32] LABS: BASO % 0.3 % (0.0-1.0); EOS # 0.1 10^3/uL (0.0-0.5); EOS % 1.5 % (0.0-3.0); HEMATOCRIT 42.7 % (42.0-52.0); HEMOGLOBIN 13.6 g/dl (13.5-17.5); LYMPH # 0.9 10^3/uL (1.5-5.0); LYMPH % 12.1 % (24.0-44.0); MEAN CORPUSCULAR HEMOGLOBIN 30.1 pg (27.0-33.0); MEAN CORPUSCULAR HGB CONC 31.9 g/dl (32.0-36.5); MEAN CORPUSCULAR VOLUME 94.5 fl (80.0-96.0); MONO # 0.5 10^3/uL (0.0-0.8); NEUTROPHILS # 6.2 10^3/uL (1.5-8.5); NEUTROPHILS % 79.6 % (36.0-66.0); PLATELET COUNT, AUTOMATED 289 10^3/uL (150-450); RED BLOOD COUNT 4.52 10^6/uL (4.30-6.10); WHITE BLOOD COUNT 7.8 10^3/uL (4.0-10.0)
[2019-07-12 16:40] LABS: ALBUMIN 3.2 GM/DL (3.2-5.2); BILIRUBIN,TOTAL 0.6 MG/DL (0.2-1.0); CALCIUM LEVEL 9.3 MG/DL (8.8-10.2); CREATININE FOR GFR 1.42 MG/DL (0.70-1.30); GLOMERULAR FILTRATION RATE 52.3 (>42); POTASSIUM SERUM 3.6 MEQ/L (3.5-5.1); PROSTATIC SPECIFIC AG MONITOR 3.21 NG/ML (< 4.00); TOTAL PROTEIN 7.3 GM/DL (6.4-8.2)
== END ==
LOC: M LABDRAWC 15:50
PROVIDERS: ATTEND Internal Medicine Hematology
DX: C61 Malignant neoplasm of prostate (principal)

== ENCOUNTER → 2019-08-04 | Outpatient (REF) | payer MEDICARE, OTHER ==
[2019-08-04 18:42] LABS: BASO # 0.1 10^3/uL (0.0-0.2); BASO % 0.6 % (0.0-1.0); EOS # 0.2 10^3/uL (0.0-0.5); EOS % 2.5 % (0.0-3.0); HEMATOCRIT 42.2 % (42.0-52.0); HEMOGLOBIN 13.8 g/dl (13.5-17.5); LYMPH # 1.2 10^3/uL (1.5-5.0); LYMPH % 14.7 % (24.0-44.0); MEAN CORPUSCULAR HEMOGLOBIN 31.2 pg (27.0-33.0); MEAN CORPUSCULAR HGB CONC 32.7 g/dl (32.0-36.5); MEAN CORPUSCULAR VOLUME 95.5 fl (80.0-96.0); MONO # 0.6 10^3/uL (0.0-0.8); MONO % 6.9 % (0.0-5.0); NEUTROPHILS % 74.6 % (36.0-66.0); PLATELET COUNT, AUTOMATED 307 10^3/uL (150-450); RED BLOOD COUNT 4.42 10^6/uL (4.30-6.10)
[2019-08-04 18:43] LABS: ALBUMIN 3.3 GM/DL (3.2-5.2); BILIRUBIN,TOTAL 0.5 MG/DL (0.2-1.0); CALCIUM LEVEL 9.1 MG/DL (8.8-10.2); CREATININE FOR GFR 1.33 MG/DL (0.70-1.30); GLOMERULAR FILTRATION RATE 56.4 (>42); POTASSIUM SERUM 3.7 MEQ/L (3.5-5.1); PROSTATIC SPECIFIC AG MONITOR 3.96 NG/ML (< 4.00)
== END ==
LOC: M LABDRAWC 15:51
PROVIDERS: ATTEND Internal Medicine Medical Oncology
DX: C61 Malignant neoplasm of prostate (principal)

== ENCOUNTER → 2019-09-01 | Outpatient (REF) | payer MEDICARE ==
[2019-09-01 17:35] LABS: BASO % 0.5 % (0.0-1.0); EOS # 0.2 10^3/uL (0.0-0.5); EOS % 2.1 % (0.0-3.0); HEMATOCRIT 41.5 % (42.0-52.0); HEMOGLOBIN 13.5 g/dl (13.5-17.5); LYMPH # 1.1 10^3/uL (1.5-5.0); LYMPH % 14.2 % (24.0-44.0); MEAN CORPUSCULAR HEMOGLOBIN 30.7 pg (27.0-33.0); MEAN CORPUSCULAR HGB CONC 32.5 g/dl (32.0-36.5); MEAN CORPUSCULAR VOLUME 94.3 fl (80.0-96.0); MONO # 0.4 10^3/uL (0.0-0.8); MONO % 5.6 % (0.0-5.0); NEUTROPHILS # 5.8 10^3/uL (1.5-8.5); NEUTROPHILS % 77.1 % (36.0-66.0); PLATELET COUNT, AUTOMATED 287 10^3/uL (150-450); WHITE BLOOD COUNT 7.5 10^3/uL (4.0-10.0)
[2019-09-01 17:47] LABS: ALBUMIN 3.1 GM/DL (3.2-5.2); ALT/SGPT 22 U/L (12-78); BLOOD UREA NITROGEN 18 MG/DL (7-18); CALCIUM LEVEL 9.1 MG/DL (8.8-10.2); CARBON DIOXIDE LEVEL 27 MEQ/L (21-32); CHLORIDE LEVEL 96 MEQ/L (98-107); CREATININE FOR GFR 1.23 MG/DL (0.70-1.30); GLOMERULAR FILTRATION RATE > 60.0 (>42); GLUCOSE, FASTING 324 MG/DL (70-100); POTASSIUM SERUM 3.9 MEQ/L (3.5-5.1); PROSTATIC SPECIFIC AG MONITOR 6.48 NG/ML (< 4.00); SODIUM LEVEL 132 MEQ/L (136-145)
== END ==
LOC: M LABDRAWC 15:57
PROVIDERS: ATTEND Internal Medicine Hematology
DX: Z01.89 Encounter for other specified special examinations (principal); R97.20 Elevated prostate specific antigen [PSA]

== ENCOUNTER → 2019-11-17 | Outpatient (REF) | payer MEDICARE ==
[~2019-11-17] MED LIST changes: +ALBU8.5H INH; +ASPI81TA26 PO; -ASPI81TA85 PO; +ASPI81TA86 PO; +BENA25CA4 PO; +DEXA4TA PO; +METO50TA7 PO; +ONDA8TAB10 PO; +PROC10TA4 PO
== END ==
LOC: M LABDRAWC 18:28
PROVIDERS: ATTEND Specialist
DX: C61 Malignant neoplasm of prostate (principal)

== ENCOUNTER → 2019-12-13 | Outpatient (REF) | payer MEDICARE ==
[2019-12-13 12:11] LABS: BASO % 0.4 % (0.0-1.0); EOS # 0.2 10^3/uL (0.0-0.5); EOS % 2.4 % (0.0-3.0); HEMATOCRIT 40.1 % (42.0-52.0); HEMOGLOBIN 13.3 g/dl (13.5-17.5); LYMPH % 10.6 % (24.0-44.0); MEAN CORPUSCULAR HEMOGLOBIN 31.7 pg (27.0-33.0); MEAN CORPUSCULAR HGB CONC 33.2 g/dl (32.0-36.5); MEAN CORPUSCULAR VOLUME 95.5 fl (80.0-96.0); MONO # 0.5 10^3/uL (0.0-0.8); MONO % 5.6 % (0.0-5.0); NEUTROPHILS # 7.7 10^3/uL (1.5-8.5); NEUTROPHILS % 80.7 % (36.0-66.0); PLATELET COUNT, AUTOMATED 294 10^3/uL (150-450); WHITE BLOOD COUNT 9.5 10^3/uL (4.0-10.0)
[2019-12-13 12:46] LABS: ALBUMIN 3.1 GM/DL (3.2-5.2); BILIRUBIN,TOTAL 0.5 MG/DL (0.2-1.0); CREATININE FOR GFR 1.32 MG/DL (0.70-1.30); GLOMERULAR FILTRATION RATE 56.9 (>42); PROSTATIC SPECIFIC AG MONITOR 26.8 NG/ML (< 4.00); TOTAL PROTEIN 7.1 GM/DL (6.4-8.2)
== END ==
LOC: M LABDRAWC 11:06
PROVIDERS: ATTEND Specialist
DX: C61 Malignant neoplasm of prostate (principal)

== ENCOUNTER 2020-01-29 01:48 | Inpatient (IN) | payer MEDICARE ==
[2020-01-29] VITALS (43 sets, daily range): BP systolic 40–147; BP diastolic 21–73
[~2020-01-29] VITALS: Ht 182.9 cm; Wt 132.7 kg
[~2020-01-29 01:48] MED LIST changes: -ALBU8.5H INH; -ASPI81TA26 PO; -BENA25CA4 PO; -METO50TA7 PO
[2020-01-29] MEDS ORDERED: NS 1,000 ML IV ONE (02:15)
[2020-01-29] MEDS ORDERED: NS IV ONE (02:45)
[2020-01-29 03:38] LABS: VENOUS BASE EXCESS -9.6 (-2.0-2.0); VENOUS HCO3 19.6 MEQ/L (23.0-27.0); VENOUS O2 SATURATION 85.6 % (60.0-80.0); VENOUS PARTIAL PRESSURE CO2 56.8 mmHg (38.0-50.0); VENOUS PARTIAL PRESSURE O2 60.3 mmHg (30.0-50.0); VENOUS PH 7.155 UNITS (7.330-7.430); VENOUS STANDARD HCO3 16.7 MEQ/L; VENOUS TOTAL CO2 21.3 MEQ/L (24.0-28.0)
[2020-01-29 03:47] LABS: BASO % 2.6 % (0.0-1.0); HEMATOCRIT 38.5 % (42.0-52.0); HEMOGLOBIN 12.4 g/dl (13.5-17.5); LYMPH # 0.2 10^3/uL (1.5-5.0); LYMPH % 43.6 % (24.0-44.0); MEAN CORPUSCULAR HGB CONC 32.2 g/dl (32.0-36.5); MONO # 0.1 10^3/uL (0.0-0.8); MONO % 20.5 % (0.0-5.0); NEUTROPHILS % 20.5 % (36.0-66.0); PLATELET COUNT, AUTOMATED 251 10^3/uL (150-450); RED BLOOD COUNT 4.14 10^6/uL (4.30-6.10)
[2020-01-29 03:55] LABS: WHITE BLOOD COUNT 0.4 10^3/uL (4.0-10.0)
[2020-01-29 03:56] LABS: NEUTROPHILS # 0.1 10^3/uL (1.5-8.5)
[2020-01-29 04:09] LABS: ALBUMIN 2.2 GM/DL (3.2-5.2); BILIRUBIN,DIRECT 0.3 MG/DL (0.0-0.2); BILIRUBIN,TOTAL 0.7 MG/DL (0.2-1.0); CK-MB VALUE MASS 10.7 NG/ML (<3.6); MB/CK RELATIVE INDEX 1.62 (< OR =4); TOTAL PROTEIN 6.1 GM/DL (6.4-8.2); TROPONIN I 0.02 NG/ML (< 0.10)
[2020-01-29 04:10] LABS: CALCIUM LEVEL 7.7 MG/DL (8.8-10.2); CREATININE FOR GFR 3.96 MG/DL (0.70-1.30); POTASSIUM SERUM 3.2 MEQ/L (3.5-5.1)
--- NOTE | 2020-01-29 04:15 | REPVR ---
PROCEDURE INFORMATION: Exam: CT Abdomen And Pelvis Without Contrast Exam date and time: 01/29/2020 3:41 AM Age: 69 years old Clinical indication: Abdominal pain; Additional info: Abd pain, diarrhea, tania, HX of prostate CA TECHNIQUE: Imaging protocol: Computed tomography of the abdomen and pelvis without contrast. Radiation optimization: All CT scans at this facility use at least one of these dose optimization techniques: automated exposure control; mA and/or kV adjustment per patient size (includes targeted exams where dose is matched to clinical indication); or iterative reconstruction. COMPARISON: CT ABD/PEL W/IV CONTRAST ONLY 01/05/2018 10:02 AM FINDINGS: Lungs: Bilateral dependent and linear atelectasis versus scarring. Heart: Coarsely calcified mitral annulus. Liver: Hepatomegaly and steatosis. Gallbladder and bile ducts: Cholelithiasis. No specific evidence of acute cholecystitis. Pancreas: Normal. No ductal dilation. Spleen: Normal. No splenomegaly. Adrenal glands: Normal. No mass. Kidneys and ureters: Normal. No hydronephrosis. Stomach and bowel: Large midline abdominal wall hernia containing gas-filled distended loop of transverse colon. Fluid is noted throughout the colon and rectum consistent with history of diarrhea. Dilated stomach and proximal small bowel loops with bowel caliber gradually tapering to normal. A partial or early obstruction is considered. Appendix: No evidence of appendicitis. Intraperitoneal space: Unremarkable. No free air. No significant fluid collection. Vasculature: Atherosclerotic disease of the coronary arteries. Lymph nodes: Unremarkable. No enlarged lymph nodes. Urinary bladder: Unremarkable as visualized. Reproductive: Prostate brachytherapy seeds in place. Bones/joints: Large sclerotic lesion involving L3 vertebral body. Smaller similar appearing lesion involving L4 vertebra. Appearance is concerning for metastatic disease. Multilevel degenerative disease and facet hypertrophy of the thoracolumbar spine. Soft tissues: Unremarkable. IMPRESSION: Large midline abdominal wall hernia containing gas-filled distended loop of transverse colon. Fluid is noted throughout the colon and rectum consistent with history of diarrhea. Dilated stomach and proximal small bowel loops with bowel caliber gradually tapering to normal. A partial or early obstruction is considered. Interval development of sclerotic lesions involving L3 and L4 vertebral bodies concerning for metastatic prostate cancer. Hepatomegaly and steatosis. Cholelithiasis. No specific evidence of acute cholecystitis. Electronically signed by: Akshat Abarca On 01/29/2020 04:14:55 AM
[2020-01-29] MEDS ORDERED: HumuLIN R (REGULAR) INSULIN (NovoLIN R) **100U/ML** PER UNIT IV STA (04:29)
[2020-01-29] MEDS ORDERED: PIPERACILLIN/TAZOBACTAM SOD 3.375 GM in D5W MINI-BAG PLUS 50 ML IV ONE (04:30)
[2020-01-29] MEDS ORDERED: POTASSIUM CHLORIDE 10 MEQ SR TABLET PO ONE (04:30)
[2020-01-29] MEDS ORDERED: METO50TA7 PO (05:12)
[2020-01-29] MEDS ORDERED: ASPI81TA26 PO (05:12)
[2020-01-29] MEDS ORDERED: ALBU8.5H INH (05:14)
[2020-01-29] MEDS ORDERED: BENA25CA4 PO (05:14)
[2020-01-29] MEDS ORDERED: methylPREDNISolone 125MG 2ML VIAL IV STA (05:16)
[2020-01-29] MEDS ORDERED: MAALOX 30 ML SUSP *UDC PO PRN (05:30)
[2020-01-29] MEDS ORDERED: DEXTROSE 50% 50 ML SYRINGE IV PRN (05:30)
[2020-01-29] MEDS ORDERED: ACETAMINOPHEN TAB 650MG DOSE (2X325MG) PO PRN (05:30)
[2020-01-29] MEDS ORDERED: GLUCOSE 4GM CHEW TABLET PO PRN (05:30)
[2020-01-29] MEDS ORDERED: GLUCAGON INJ 1MG VIAL SC PRN (05:30)
[2020-01-29] MEDS ORDERED: PIPERACILLIN/TAZOBACTAM SOD 4.5 GM in D5W MINI-BAG PLUS 50 ML IV SCH (05:30)
[2020-01-29] MEDS ORDERED: MOM 30ML SUSPENSION UDC PO PRN (05:30)
[2020-01-29] MEDS ORDERED: LEVALBUTEROL 1.25 MG/0.5 ML CONCENTRATE NEB NEB PRN (05:30)
--- NOTE | 2020-01-29 05:39 | HPEPDOC ---
[facility] Medical History & Physical Date of Admission Jan 29, 2020 Date of Service: Jan 29, 2020 Primary Care Physician: Jose Valentino M.D. Attending Physician: ROBY CARTER MD History and Physical TIME OF SERVICE: 5:48am // CC time at bedside 30 min CHIEF COMPLAINT: weakness HISTORY OF PRESENT ILLNESS: The majority of the history was obtained from and chart review After starting Taxotere on Jan 21 developed diarrhea, abdominal pain & weakness and was not eating well. His family couldn't take care of him so they called EMS to bring him to the hospital. Prior to arrival EMS gave him 700ml IVF. In ER his initial BP was 80/40 additional fluids were ordered; his O2 sats were in the high 80s to 90s and he was started on supplemental O2. Just prior to my assessment at around 545am he had an episode of cardiac arrest with v tach, one dose of epi was given and ROSC was achieved w/o defibrillation. 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 HOME MEDICATIONS: Please see below. PHYSICAL EXAMINATION: Vital Signs Date Time Temp Pulse Resp B/P (MAP) Pulse Ox O2 Delivery O2 Flow Rate FiO2 01/29/20 02:03 106 86 01/29/20 02:06 86/51 (63) 01/29/20 02:23 96.9 20 Nasal Cannula 3.0 01/29/20 06:06 60 GENERAL APPEARANCE: intubated but not sedated / unresponsive INTEGUMENT: has generalized pallor / extremities cool and dusky in color HEENT: eyes fixed open / mucus membranes dry / ET tube in place CARDIOVASCULAR: tachycardic / + LE edema LUNGS: bronchovascular breath sounds ABDOMEN: abdomen distended with ventral hernia / abdomen soft PSYCHIATRIC: unable to assess LABORATORY DATA: 01/29/20 03:23 Immature Granulocyte % (Auto) 12.8H, Neutrophils (%) (Auto) 20.5L, Lymphocytes (%) (Auto) 43.6, Monocytes (%) (Auto) 20.5H, Eosinophils (%) (Auto) 0.0, Basophils (%) (Auto) 2.6H, Neutrophils # (Auto) 0.1L, Lymphocytes # (Auto) 0.2L, Monocytes # (Auto) 0.1, Eosinophils # (Auto) 0.0, Basophils # (Auto) 0.0, Nucleated Red Blood Cells % (auto) 0.0, Blood Gas Bicarbonate Standard 16.7, Venous Blood pH 7.155L, Venous Blood Partial Pressure CO2 56.8H, Venous Blood P artial Pressure O2 60.3H, Venous Blood Total Carbon Dioxide 21.3L, Venous Blood HCO3 19.6L, Venous Blood Oxygen Saturation 85.6H, Venous Blood Base Excess - 9.6L, Anion Gap 15, Glomerular Filtration Rate 16.0L, Osmolality 326H, Lactic Acid Level 5.6*H, Calcium Level 7.7L, Total Bilirubin 0.7, Direct Bilirubin 0.3H, Aspartate Amino Transf (AST/SGOT) 131H, Alanine Aminotransferase (ALT/SGPT) 229H, Alkaline Phosphatase 89, Total Creatine Kinase 660H, Creatine Kinase MB 10.7H, Creatine Kinase MB Relative Index 1.62, Troponin I 0.02, Total Protein 6.1L, Albumin 2.2L, Albumin/Globulin Ratio 0.6, Lipase 54L 01/29/20 04:28: POC pH (Misc Panel) 7.192*L, POC Base Excess (Misc Panel) -10.0L, POC Saturated Percent O2 (Misc) 91L, POC pO2 (Misc Panel) 74.0L, POC pCO2 (Misc Panel) 46.4H, POC HCO3 (Misc Panel) 17.8L, POC Total CO2 (Misc Panel) 19.0L IMAGING: CT abd/pelvis: IMPRESSION: Large midline abdominal wall hernia containing gas- filled distended loop of transverse colon. Fluid is noted throughout the colon and rectum consistent with history of diarrhea Dilated stomach and proximal small bowel loops with bowel caliber gradually tapering to normal. A partial or early obstruction is considered. Interval development of sclerotic lesions involving L3 and L4 vertebral bodies concerning for metastatic prostate cancer. Hepatomegaly and steatosis. Cholelithiasis. No specific evidence of acute c holecystitis. MICROBIOLOGY: Blood cx and GI panel pending... ASSESSMENT: is a 69 yr old w a hx of metastatic prostate CA, HTN, and DM who presented w n/v/d and abdominal pain and was found to be in MODS w ZACK and shock liver along with acute COPD, while in the ER he had v fib arrest and was intubated. PLAN: 1.MODS SIRS criteria: HR >90 / WBC <4 / RR = 20 Lactic acid > 5.6 CODE STATUS CHANGED DNR/trail intubation post cardiac-arrest after discussion with his significant other QSOFA Score = 2 points = high risk Plan: admit to ICU / telemetry / target MAP at of least 65 to 70 / place Ramos to monitor strict Is and Os with target UOP of at least 0.5 ml/kg/H / f/u FSBS Q6H w target serum glucose 140-180 while acutely ill / f/u INR, PT, PTT and Fibrinogen to r/o DIC / Sepsis protocol w repeat lactic acid / Zosyn and Vanc / IVF, start Norepinephrine and Epinephrine Drips /f/u blood cx, procalcitonin, and sputum Cx / Acetaminophen PRN for fever / he has a hx of HTN will hold chlorthalidone, metoprolol / bc he is on 8mg of dexamethasone currently, we will check an AM cortisol & start hydrocortisone 100mg TID 2. Acute Ventilator Dependent Hypercarbic Respiratory Failure Plan: Pulm consult () for vent management / Versed for sedation 3. Hypoxia likely 2/2 acute COPD -trigger may be: viral infection, bacterial infection, myocardial ischemia, heart failure, aspiration, or pulmonary embolism -he had hypoxia and required supplemental O2 prior to intubation Plan: continuous pulse oximetry / aspiration precautions / f/u respiratory panel, d-dimer, sputum cx / Solumedrol / Dunebs Q6H, Levalbuterol Q4HP PPI / on abx as above 4. Sudden Cardiac Arrest GO-FAR Score = <1% survival to discharge Post arrest rhythm showed afib w RVR Plan: telemetry / f/u repeat CBC, CMP, trops / will not start hypothermia protocol at this time / f/u Echo / day time team may consider Cardio consult 5. New onset Atrial Fibrillation Likely 2/2 sepsis Trop wnl K & Ca slightly low CHADS VASC Score to determine risk of stroke = 3 Plan: telemetry /f/u Mg, TSH, serial Trops, CT chest w/o contrast bc of ZACK/ digoxin for rate control / heparin drip for AC / Echo to r/o valvulopathy 6. Acute Renal Failure Likely prerenal Baseline Cr 1.37 Current Cr 3.96 CK 660 Plan: Is/Os / IVF / f/u Phosph, LDH, PTH, Uric acid, UA, ulytes for FENa or FEUrea / renal US / trend BUN, Cr, CK daily / hold metformin 7.Uncontrolled DM He doesn't meet the diagnostic criteria for Hyperosmolar Hyperglycemic state bc his glucose is <600 Plan: f/u FSBS Q4H & A1C / hypoglycemia protocol / sliding scale insulin / hold metformin, canagliflozin and glipizide 8. Partial SBO vs Early SBO Plan: NG to LIS / day time team to consider consult Gen Surg 9. Shock liver Plan: trend LFTs / hold statin 10. NN Anemia Plan: retic #, B12, RBC folate, Iron studies 11. N/V/Diarrhea Plan: f/u GI panel / zofran 12. Taxotere induced neutropenia An adverse event in up to 50% of patients taking this med There is no indication for CSF in neutropenia w/o fever after chemo ANC = 82 = severe neutropenia Plan: neutropenic precautions / on abx as above / f/u blood cx / f/u CT chest if he has PNA may be a candidate for CSF 13. Hypokalemia 2/2 vomiting Received KCl in ER Plan: f/u BMP and Mag 14. Hypocalcemia Likely 2/2 sepsis Plan: f/u ionized CA 15. CAD ? Plan: hold ASA to reduce risk of bleeding while also on heparin drip / c/w Plavix / hold metoprolol bc of hypotension / hold statin bc of elevated LFTs 16. Prostate cancer Plan: day time team may consider fentanyl for pain / hold tamsulosin bc of low BP 17. Obesity Complicates care DVT Px n/a on Heparin drip Prognosis:poor, called his family to come to the hospital to discuss FISHER MUSSEL this morning Home Medications Scheduled Amitriptyline HCl (Amitriptyline HCl) 100 Mg Tablet, 100 MG PO QPM Ascorbic Acid (C Complex) 500 Mg Tablet.er, 1 TAB PO DAILY Aspirin (Aspirin EC) 81 Mg Tablet.dr, 81 MG PO QHS Atorvastatin Calcium (Atorvastatin Calcium) 20 Mg Tablet, 20 MG PO DAILY Calcium Carb, Citrate/Vit D3 (Calcium + D3 ER Tablet) 1 Each Tablet.er, 1 TAB PO DAILY Canagliflozin (Invokana) 300 Mg Tablet, 300 MG PO DAILY Chlorthalidone (Chlorthalidone) 25 Mg Tablet, 25 MG PO DAILY Clopidogrel Bisulfate (Clopidogrel) 75 Mg Tablet, 75 MG PO DAILY Dexamethasone (Dexamethasone) 4 Mg Tablet, 2 TABS PO ASDIRECTED take 2 tabs by mouth daily the day before chemo, the day of chemo, and the day after chemo Diphenhydramine HCl (Benadryl) 25 Mg Capsule, 25 MG PO DAILY Etodolac (Etodolac) 300 Mg Capsule, 600 MG PO BID for pain Glipizide (Glipizide Xl) 5 Mg Tab.er.24, 10 MG PO BID Metformin HCl (Metformin HCl) 1,000 Mg Tablet, 1,000 MG PO BID Metoprolol Tartrate (Metoprolol Tartrate) 50 Mg Tablet, 50 MG PO BID Multivitamin (Multivitamins) 1 Each Capsule, 1 CAP PO DAILY [place]-3/Dha/Epa/Fish Oil (Fish Oil 1,000 mg Softgel) 1 Each Capsule, 1 CAP PO DAILY Omeprazole (Omeprazole) 20 Mg Capsule.dr, 20 MG PO BID Oxybutynin Chloride (Oxybutynin Chloride) 5 Mg Tablet, 5 MG PO BID Tamsulosin HCl (Flomax) 0.4 Mg Capsule, 0.4 MG PO BID Scheduled PRN Albuterol Sulfate (Albuterol Sulfate Hfa) 8.5 Gm Hfa.aer.ad, 2 PUFFS INH Q4-6HP PRN for SHORTNESS OF BREATH Ondansetron HCl (Ondansetron HCl) 8 Mg Tablet, 8 MG PO Q8HP PRN for NAUSEA OR VOMITING Oxycodone HCl (Oxycodone HCl) 5 Mg Tablet, 10 MG PO QID PRN for pain Prochlorperazine Maleate (Prochlorperazine Maleate) 10 Mg Tablet, 10 MG PO Q8HP PRN for NAUSEA OR VOMITING Miscellaneous Medications Leuprolide Acetate (Lupron Depot) 45 Mg Syringekit, 45 MG IM Allergies Coded Allergies: leuprolide (Verified Adverse Reaction, Intermediate, nausea, vomiting, dizzy, 01/22/20) [note: patient can tolerate IM leuprolide (from Lupron)] A-FIB/CHADSVASC A-FIB History Current/History of A-Fib/PAF?: Yes Current PO Anticoag Therapy: Yes ROBY CARTER MD Jan 29, 2020 05:39
[2020-01-29] MEDS ORDERED: oxyCODONE 5MG TAB PO PRN (05:45)
[2020-01-29] MEDS ORDERED: ONDANSETRON 4MG/2ML VIAL IV PRN (05:45)
[2020-01-29] MEDS ORDERED: HEPARIN SOD (PORCINE) 5000UNITS/ML 1ML VIAL/SYRINGE IV PRN (05:45)
[2020-01-29] MEDS ORDERED: NOREPINEPHRINE 4 MG/4 ML AMP As Ordered ONE ×2 (05:55→06:10)
[2020-01-29 05:56] LABS: PHOSPHORUS LEVEL 5.1 MG/DL (2.5-4.9); URIC ACID 7.9 MG/DL (3.5-7.2)
[2020-01-29] MEDS ORDERED: EPINEPHrine 1MG/10ML SYRINGE 1.5IN IV STA (05:58)
[2020-01-29] MEDS ORDERED: NOREPINEPHRINE BITARTRATE 8 MG in D5W 492 ML IV SCH ×2 (06:00→10:30)
[2020-01-29] MEDS ORDERED: DIGOXIN INJ 0.5 MG/2 ML AMP (J1160) IV ONE (06:00)
[2020-01-29] MEDS ORDERED: HEPARIN DRIP 25,000 UNITS in IV 1 EA IV SCH (06:00)
[2020-01-29 06:04] LABS: HEMOGLOBIN A1c 10.4 %
[2020-01-29] MEDS ORDERED: MIDAZOLAM 5MG/ML 1ML VIAL (J2250 PER 1MG) IV ONE (06:15)
[2020-01-29] MEDS ORDERED: MIDAZOLAM HCL 100 MG in D5W 80 ML IV SCH (06:45)
[2020-01-29] MEDS ORDERED: REFRIGERATOR IV KEYS XX PRN (06:45)
[2020-01-29] MEDS: NS 1,000 ML IV SCH ×2 (07:37→15:16)
[2020-01-29] MEDS: HumaLOG INSULIN (NovoLOG) PER UNIT SC SCH ×4 (07:49→18:08)
--- NOTE | 2020-01-29 07:54 | REP ---
INDICATION: post intubation. COMPARISON: February 12, 2008.. TECHNIQUE: Portable supine AP radiograph. FINDINGS: Endotracheal tube is seen in good position at the level of the proximal clavicles. NG tube enters the left upper quadrant of the abdomen and is seen coursing off the field of view in the gastric body. Monitoring electrodes are noted. Mildly prominent heart is seen. There are linear opacities in the perihilar regions bilaterally consistent with platelike atelectasis. No infiltrate is seen. Pleural angles are sharp. There is no evidence of pulmonary edema. IMPRESSION: Endotracheal and nasogastric tubes in good position. There is a surgical clip in the right for paratracheal region. Platelike atelectasis in the perihilar regions. Otherwise negative. <Electronically signed by Jonathan Lopez > 01/29/20 [id number]
--- NOTE | 2020-01-29 07:55 | ECGEPIP ---
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
[2020-01-29] MEDS: IPRATROPIUM 0.5MG/ALBUTEROL 2.5MG INH SOL UD 3ML (DUONEB) NEB SCH ×2 (08:00→15:04)
[2020-01-29] MEDS ORDERED: EPINEPHrine 1MG/10ML SYRINGE 1.5IN ONE (08:02)
[2020-01-29] MEDS ORDERED: EPINEPHrine HCL INJ 1 MG in D5W 240 ML IV SCH (08:30)
[2020-01-29 08:46] LABS: BASO % 2.3 % (0.0-1.0); HEMATOCRIT 42.3 % (42.0-52.0); HEMOGLOBIN 13.5 g/dl (13.5-17.5); LYMPH # 0.2 10^3/uL (1.5-5.0); LYMPH % 36.4 % (24.0-44.0); MEAN CORPUSCULAR HEMOGLOBIN 30.3 pg (27.0-33.0); MEAN CORPUSCULAR HGB CONC 31.9 g/dl (32.0-36.5); MEAN CORPUSCULAR VOLUME 94.8 fl (80.0-96.0); MONO # 0.1 10^3/uL (0.0-0.8); MONO % 31.8 % (0.0-5.0); NEUTROPHILS % 29.5 % (36.0-66.0); PLATELET COUNT, AUTOMATED 243 10^3/uL (150-450); RED BLOOD COUNT 4.46 10^6/uL (4.30-6.10)
[2020-01-29 08:48] LABS: NEUTROPHILS # 0.1 10^3/uL (1.5-8.5); WHITE BLOOD COUNT 0.4 10^3/uL (4.0-10.0)
[2020-01-29] MEDS ORDERED: DIGOXIN INJ 0.5 MG/2 ML AMP (J1160) IV STA (08:59)
[2020-01-29] MEDS ORDERED: oxyBUTYnin 5 MG TAB PO SCH (09:00)
[2020-01-29] MEDS ORDERED: predniSONE 20 MG TAB PO SCH (09:00)
[2020-01-29] MEDS ORDERED: CLOPIDOGREL 75 MG TAB PO SCH (09:00)
[2020-01-29] MEDS ORDERED: PANTOPRAZOLE 40MG TAB (PROTONIX) PO SCH (09:00)
[2020-01-29] MEDS ORDERED: DIGOXIN INJ 0.5 MG/2 ML AMP (J1160) As Ordered ONE (09:08)
[2020-01-29 09:40] LABS: ABG BASE EXCESS -10.9 (-2.0-2.0); ABG HCO3 15.4 MEQ/L (22.0-26.0); ABG O2 SATURATION 95.4 % (95.0-99.0); ABG PARTIAL PRESSURE O2 85.1 mmHg (75.0-100.0); ABG STANDARD HCO3 15.8 MEQ/L (22.0-26.0); ABG TOTAL CO2 16.5 MEQ/L (23.0-31.0)
[2020-01-29 09:53] LABS: BILIRUBIN,TOTAL 0.6 MG/DL (0.2-1.0); CALCIUM LEVEL 8.3 MG/DL (8.8-10.2); CREATININE FOR GFR 4.16 MG/DL (0.70-1.30); GLOMERULAR FILTRATION RATE 15.1 (>42); MAGNESIUM LEVEL 2.6 MG/DL (1.8-2.4); POTASSIUM SERUM 3.1 MEQ/L (3.5-5.1); THYROID STIMULATING HORMONE 1.05 uIU/ML (0.358-3.740); TOTAL PROTEIN 6.7 GM/DL (6.4-8.2)
[2020-01-29] MEDS ORDERED: AMIODARONE HCL 150 MG in IV 1 EA IV STA (10:07)
--- NOTE | 2020-01-29 10:11 | REP ---
INDICATION: Central Line Placement. COMPARISON: AP portable chest 01/29/2020 at 6:11 a.m. TECHNIQUE: Single AP portable chest view. FINDINGS: Endotracheal tube and nasogastric tubes are unchanged. There is a new right subclavian central venous catheter with tip extending into the right atrium. The bladder level of inflation with lessening of the atelectatic changes seen bilaterally. There is no pneumothorax, effusion or definite acute infiltrate. Less widening of mediastinum with better level of inflation. Some calcified aortic arch without gross aneurysm. Heart size not grossly enlarged for this AP portable exam. IMPRESSION: 1. There is a new right subclavian central catheter with tip in the right atrium. No evidence of pneumothorax or right effusion. 2. Better level of inflation with decreased linear and subsegmental atelectasis. No dense consolidation, edema or gross cardiomegaly. <Electronically signed by Ishaan Cárdenas > 01/29/20 [id number]
[2020-01-29] MEDS ORDERED: SODIUM CHLORIDE 0.9% 1000ML IV ONE (10:15)
[2020-01-29] MEDS ORDERED: VANCOMYCIN INTERMITTENT/PULSE DOSING BY CLINICAL PHARMACIST PER DOSING PROTOCOL XX SCH (10:30)
[2020-01-29 10:45] LABS: TROPONIN I 0.04 NG/ML (< 0.10)
[2020-01-29] MEDS ORDERED: VASOPRESSIN INJ 20 UNITS in NS 499 ML IV SCH (11:00)
[2020-01-29] MEDS: HYDROCORTISONE 100 MG/2 ML VIAL (J1720 PER 1) IV SCH ×2 (11:00→15:00)
[2020-01-29] MEDS ORDERED: AMIODARONE HCL 360 MG in IV 1 EA IV SCH ×2 (11:45→17:45)
[2020-01-29] MEDS: VANCOMYCIN HCL 1,000 MG, VIAL MATE ADAPTER 1 EACH in D5W 250 ML IV SCH ×2 (11:52→12:00)
[2020-01-29] MEDS: PIPERACILLIN/TAZOBACTAM SOD 3.375 GM in D5W MINI-BAG PLUS 50 ML IV SCH ×2 (12:02→16:45)
[2020-01-29] MEDS: KCL 20MEQ IN 100ML SWI (KRUN) 20 MEQ in IV 1 EA IV SCH ×4 (12:56→14:33)
[2020-01-29] MEDS ORDERED: VANCOMYCIN HCL 1,000 MG, VIAL MATE ADAPTER 1 EACH in D5W 250 ML IV ONE (13:30)
[2020-01-29 14:16] LABS: INR 3.71; PROTHROMBIN TIME 37.6 SECONDS (12.5-14.3)
[2020-01-29 14:17] LABS: PARTIAL THROMBOPLASTIN TIME 39.8 SECONDS (24.2-38.5)
--- NOTE | 2020-01-29 14:39 | IPNPDOC ---
Text Note Date of Service The patient was seen on 01/29/20. NOTE CC: Weakness Subjective: Serge Mackenzie is a 69 yr old male who presented to the ED w/ weakness. Today, patient was transferred from the ED to the ICU and remained sedated. Patient developed atrial fibrillation w/ RVR and was administered digoxin and subsequently amiodarone which was subtherapeutic. Care goals discussed by Dr. Rodríguez and Dr. Nichols w/ family at bedside w/ plans to continue DNR w/ reevaluation. ROS: Unable to report ROS due to patient's nonresponsiveness Objective: General: Patient is nonresponsive Cardiovascular: RRR, no murmurs or gallops Respiratory: Patient currently on ventilator, lungs clear to auscultation bilaterally, no wheezing or crackles GI: Abdominal hernia appreciated superior to umbilicus, normal bowel sounds x4 Extremities: Patient has +1/4 brachial, radial, carotid, popliteal pulses bilaterally, unable to appreciate pedal pulses bilaterally, no pitting edema bilaterally Labs: See below Imaging: -CT abdomen and pelvis on 01/29/[address] Monreal showed large midline abdominal wall hernia containing gas-filled distended loop of transverse colon. Fluid is noted throughout the colon and rectum consistent w/ history of diarrhea; dilated stomach and proximal small bowel loops w/ bowel caliber gradually tapering to normal, a partial or early obstruction is considered; interval development of sclerotic lesions involving L3 and L4 vertebral bodies concerning for metastatic prostate cancer; hepatomegaly and steatosis; cholelithiasis, no specific evidence of acute cholecystitis. -Chest x-ray on 01/29/[address] Monreal showed endotrachial and nasogastric tubes in good position, there is a surgical clip in the right for paratracheal region, platelike atelectasis in the perihilar regions, otherwise negative. -Chest x-ray on 01/29/[address] Rodríguez showed new right subclavian central catheter with tip in the right atrium, no evidence of pneumothorax or right effusion; Better level of inflation w/ decreased linear and subsegmental atelectasis; no dense consolidation, edema or gross cardiomegaly Assessment: Remigio Mackenzie is a 69 yr old male w/ PMHx of metastatic prostate cancer, HTN, DM who presents w/ weakness. Patient had episode of Vtach and was given dose of epinephrine and ROSC was achieved w/o defibrillation. Patient findings concerning for cardiac arrest due to sepsis. Plan: 1. Cardiac arrest 04/30 sepsis: -Patient had episode of pulseless Vtach of CPR and was given dose of epinephrine and ROSC approximately 2-4 mins was achieved w/o defibrillation -Trending troponins, electrolytes -Will monitor via telemetry and serial EKGs -On heparin drip -Patient is DNR w/ trial of intubation 2. Sepsis/Septic Shock -Patient meets SIRS criteria (leukopenia, tachycardia) w/ blood cultures pending -Lactic acid is elevated at 5.6 -S/P 4-5 L of fluid, continued at 100 ml/hr -Vancomycin and zosyn given for empiric coverage 3. Atrial fibrillation w/ RVR -Post ROSC rhythym approximately 2-4 mins was achieved w/o defibrillation -Digozin was given x2 -150 mg amiodarone was given 4. Elevated LFTs -Likely due to shock liver, will trend 5. ZACK -Secondary to hypovolemia -Patient unable to pass Ramos catheter, had urology consult 6. Hypoxemic Respiratory Failure Requiring Intubation w/ Mechanical Ventilation -Currently intubated pulmonary medicine following consultation appreciated 7. Metastatic prostate cancer -Patient has poor prognosis, family is discussing patient's code status and wishes -Patient currently DNR/DNI 8. HTN: -Patient currently has BP of 57/41 -Discontinued antihypertensive medications 9. DVT Prophylaxis: -On heparin drip 10. GI Prophylaxis: -Protonix 11. Code Status = currently DNR/DNI, family discussion options and situation Dispo: Poor prognosis, Patient had Vtach cardiac arrest, monitoring for any new abnormal events via troponins, EKG, and telemetry, patient currently on ventilation and is nonresponsive, treating for sepsis VS,Fishbone, I+O VS, Fishbone, I+O Laboratory Tests 01/29/20 03:23 01/29/20 08:30 Vital Signs Date Time Temp Pulse Resp B/P (MAP) Pulse Ox O2 Delivery O2 Flow Rate FiO2 01/29/20 09:11 173 01/29/20 08:19 98.4 01/29/20 08:15 22 92/58 (69) 88 Ventilator 01/29/20 07:27 80 01/29/20 04:01 3.0 I&O- Last 24 Hours up to 6 AM 01/29/20 06:00 Intake Total 2800 ml Balance 2800 ml GME ATTESTATION GME ATTESTATION My faculty preceptor for this patient encounter was physically present during the encounter and was fully available. All aspects of the patient interview, examination, medical decision making process, and medical care plan development were reviewed and approved by the faculty preceptor. The faculty preceptor is aware and concurs with the plan as stated in the body of this note and will attest to such by his/her cosignature. ATTENDING NOTE Patient was seen and examined by me personally with the residents/ students. I agree with the above assessment and plan GME ATTESTATION GME ATTESTATION My faculty preceptor for this patient encounter was physically present during the encounter and was fully available. All aspects of the patient interview, examination, medical decision making process, and medical care plan development were reviewed and approved by the faculty preceptor. The faculty preceptor is aware and concurs with the plan as stated in the body of this note and will attest to such by his/her cosignature. BRITTANEY KEARNEY OMS-IV Jan 29, 2020 14:39 MARY HWANG MD Jan 30, 2020 12:43
[2020-01-29 15:19] LABS: ABG BASE EXCESS -9.7 (-2.0-2.0); ABG HCO3 15.3 MEQ/L (22.0-26.0); ABG O2 SATURATION 96.4 % (95.0-99.0); ABG PARTIAL PRESSURE CO2 31.4 mmHg (35.0-45.0); ABG PARTIAL PRESSURE O2 92.1 mmHg (75.0-100.0); ABG STANDARD HCO3 16.7 MEQ/L (22.0-26.0); ABG TOTAL CO2 16.3 MEQ/L (23.0-31.0); ABG pH (ARTERIAL) 7.307 UNITS (7.350-7.450)
[2020-01-29] MEDS ORDERED: NOREPINEPHRINE BITARTRATE 16 MG in D5W 484 ML IV SCH (15:30)
--- NOTE | 2020-01-29 16:27 | REP ---
INDICATION: tania. COMPARISON: Noncontrast CT abdomen pelvis 01/29/2020 TECHNIQUE: Transabdominal scanning of the kidneys and bladder. FINDINGS: The right kidney is 10.0 x 4.8 x 5.6 cm and has normal cortical thickness and echogenicity there are some echogenic vessels in the renal sinus and increased sinus fat. No hydronephrosis or hydroureter evident. No renal mass or stone visible. The left kidney is 10.9 x 5.7 x 5.7 cm. Cortical thickness and echogenicity also appear normal echogenic vessels in the renal sinus with increased sinus fat noted there is no hydronephrosis, hydroureter, renal stone, cyst or solid mass. The bladder showed no gross abnormality on limited scanning. IMPRESSION: 1. Normal renal size, cortical thickness and echogenicity. 2. Echogenic vessels in the renal sinus and sinus lipomatosis evident. No stone, mass or cyst. 3. No hydronephrosis or hydroureter. Bladder grossly normal. <Electronically signed by Ishaan Cárdenas > 01/29/20 [id number]
[2020-01-29] MEDS ORDERED: LIDOCAINE 2% 5ML JELLY UROJET TOP ONE (16:30)
[2020-01-29] MEDS ORDERED: METOPROLOL 5 MG/5 ML VIAL IV STA (18:23)
[2020-01-29 20:05] LABS: ALBUMIN 1.6 GM/DL (3.2-5.2); BILIRUBIN,TOTAL 0.7 MG/DL (0.2-1.0); CALCIUM LEVEL 7.4 MG/DL (8.8-10.2); CREATININE FOR GFR 4.83 MG/DL (0.70-1.30); GLOMERULAR FILTRATION RATE 12.7 (>42); MAGNESIUM LEVEL 2.3 MG/DL (1.8-2.4); TOTAL PROTEIN 5.8 GM/DL (6.4-8.2)
[2020-01-29] MEDS ORDERED: AMITRIPTYLINE 50 MG TAB PO SCH (21:00)
--- NOTE | 2020-01-29 21:02 | ECGEPIP ---
[facility] Test Date: 2020-01-29 Pat Name: SHIRIN MATHEWS Department: Room: [place] [address] Gender: Male [employer] Sales Manager: gladys : [id number] Requested By: ROBY CARTER Order Number: [id number] Reading MD: Charles Jones Measurements Intervals [place] Rate: 152 P: OK: 0 QRS: 8 QRSD: 100 T: 0 QT: 288 QTc: 459 Interpretive Statements ATRIAL FIBRILLATION WITH RAPID VENTRICULAR RESPONSE NONSPECIFIC ST & T-WAVE ABNORMALITY Previous tracing done 01-29-20 at 0214 showed sinus tyachycardia Electronically Signed on 01-29-2020 21:02:13 EST by Charles Jones
--- NOTE | 2020-01-30 08:47 | CR ---
DATE: 01/29/2020 START TIME: 909 STOP TIME: 953 SUBJECTIVE: I was asked by Dr. Orozco and Dr. Nichols to evaluate Serge Mackenzie. Patient has been examined, chart reviewed, and I spoke at length with Dr. Nichols. In essence this is a 69-year-old gentleman with advanced prostate cancer who is now status post chemo and is admitted with what is likely neutropenic sepsis. He was receiving broad spectrum antimicrobials as well as appropriate volume resuscitation in the ER when he had a v-tach arrest. He received CPR and Epinephrine and had spontaneous return of circulation. He was intubated. First venous blood gas done at 0323 had a pH of 7.155, pCO2 of 56.8, and a PaO2 of 60.3. Repeat blood gas done in an arterial fashion at 0428, a pH is 7.192, pCO2 of 46.4, pO2 of 74 on unknown ventilator settings. The remainder of his laboratories show repeats done at 0830 have a white blood cell count of 0.4, hemoglobin 13.5, platelet count 243,000, 29.5% segs, no bands. Sodium 137, K 3.2, chloride 101, CO2 21, BUN 61, creatinine 3.96, glucose 427. Lactic acid at 0323 was 5.6 and repeat is pending. Chest x-ray shows cardiomegaly, no obvious infiltrates. On arrival in the Intensive Care Unit he was still having issues with atrial fibrillation with rapid ventricular response. He was treated prior to arrival here with several doses of Digoxin. He still has significant IV fluids running and Levophed running peripherally. A central line was placed by myself and Dr. Nichols occupying less than five minutes time. Chest x-ray shows line in good position and no pneumothorax. PHYSICAL EXAMINATION: Currently on exam he is sedate. Pupils are small, maybe react. No obvious JVD. Chest shows diminished but symmetric expansion and air exchange is equal bilaterally. There are no focal adventitious breath sounds. Cardiac exam is distant and irregularly irregular. Peripheral pulses markedly diminished. He is mottled below the knees. Abdomen shows a very large ventral hernia easily reducible. Bowel sounds are hypoactive but audible. No convincing organomegaly or masses. Extremities with no cyanosis or clubbing. Neurologically essentially unresponsive. MOST PRESSING PROBLEMS REQUIRING MY IMMEDIATE PRESENCE AT THE BEDSIDE: 1. Profound metabolic acidosis. 2. Neutropenia with sepsis. 3. Atrial fibrillation with rapid ventricular response. 4. Advanced prostate cancer status post chemotherapy. 5. History of coronary artery disease/atherosclerotic cerebrovascular disease. 6. Chronic anticoagulation with Plavix. At this point I am told that initially he had been admit DO NOT RESUSCITATE in the ER but the family is considering rescinding that. We will await their final decision. In the interim he now has a central line and we will monitor central venous pressures (CVPs) to guide volume resuscitation. Levophed will be placed in the central access. I have spoken with Dr. Nichols, his primary service who is managing his rate and cardiac rhythm. He may be a candidate for Amiodarone since he has not responded adequately to Digoxin. He has received Zosyn and Vancomycin and I believe this is reasonable coverage in view of his presentation, especially with an unknown source. Further decisions regarding treatment for his prostate cancer will be made down the road. Certainly his prognosis at this point is extremely guarded at best. There is a very high likelihood he may not survive. We will proceed as outlined above. He is adequately anticoagulated currently with Plavix but starting tomorrow we will change this to most likely subcutaneous Heparin with TEDs and sequentials. If he remains in atrial fibrillation, then consideration may be given to full dose anticoagulation but that is a decision that can be made either by primary service or cardiology. At this point we will proceed as outlined above. We will assure adequate volume resuscitation. As eluded to above, his prognosis is guarded at best and there is a very high likelihood of further morbidity and mortality. I left the bedside at 0959 hours. Less than five minutes time was occupied with procedures. IVON
[2020-01-30] MEDS ORDERED: PANTOPRAZOLE 40MG VIAL (C9113 PER 1) IV SCH (09:00)
--- NOTE | 2020-01-30 09:15 | DS.PDOC ---
Discharge Summary General Date of Admission Jan 29, 2020 at 05:16 Date of Discharge 01/29/2020 Attending Physician: MARY HWANG MD Specialist/Consultants Involve: Jesus Manuel Rodríguez Discharge Summary PROCEDURES PERFORMED DURING STAY: Right subclavian central venous access; endotracheal intubation ADMITTING DIAGNOSES: 1. Sepsis/Septic Shock 2. V-tach arrest 3. Hypoxic Respiratory failure requiring intubation and mechanical intubation 4. Atrial Fibrillation with Rapid Ventricular Response 5. Metastatic Castrate Resistant Prostate Cancer 6. ASCVD DISCHARGE DIAGNOSES: 1. Sepsis/Septic Shock 2. V-tach arrest 3. Hypoxic Respiratory failure requiring intubation and mechanical intubation 4. Atrial Fibrillation with Rapid Ventricular Response 5. Metastatic Castrate Resistant Prostate Cancer 6. ASCVD COMPLICATIONS/CHIEF COMPLAINT: Neutropenic Sepsis. 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 The patient had subsequently developed diarrhea, abdominal pain, weakness, and decreased oral intake. The patients family could not care for him so they called EMS. In the ER the patient was given IVF due to profound hypotension. The patient then developed V-tach arrest. He was intubated and given one dose of epinephrine and ROSC was achieved w/o defibrillation. The patient was placed on peripheral Levophed and epinephrine and transferred to the ICU for ongoing care HOSPITAL COURSE: During the patients hospital course he developed atrial fibrillation s/p ROSC. He required increasing pressor support and central venous access was obtained via the right subclavian. The patient was given IV digoxin without much effect. The patient was given 150mg bolus of amiodarone with mild effect on ventricular rate. He was continued on amiodarone step 2. He remained in atrial fibrillation with RVR despite amiodarone. He required high amounts of pressor support. Patients family was present at bedside and decision was made to make the patient DNR with trial intubation. The patient remained in atrial fibrillation with RVR with ventricular rate of 140-150. Metoprolol was administered. The patient eventually developed asystole and DISCHARGE MEDICATIONS: Please see below. ALLERGIES: Please see below. PHYSICAL EXAMINATION ON DISCHARGE: NOT performed as patient VITAL SIGNS: Please see below. LABORATORY DATA: Please see below. IMAGING: PROCEDURE INFORMATION: Exam: CT Abdomen And Pelvis Without Contrast Exam date and time: 01/29/2020 3:41 AM Age: 69 years old Clinical indication: Abdominal pain; Additional info: Abd pain, diarrhea, tania, HX of prostate CA TECHNIQUE: Imaging protocol: Computed tomography of the abdomen and pelvis without contrast. Radiation optimization: All CT scans at this facility use at least one of these dose optimization techniques: automated exposure control; mA and/or kV adjustment per patient size (includes targeted exams where dose is matched to clinical indication); or iterative reconstruction. COMPARISON: CT ABD/PEL W/IV CONTRAST ONLY 01/05/2018 10:02 AM FINDINGS: Lungs: Bilateral dependent and linear atelectasis versus scarring. Heart: Coarsely calcified mitral annulus. Liver: Hepatomegaly and steatosis. Gallbladder and bile ducts: Cholelithiasis. No specific evidence of acute cholecystitis. Pancreas: Normal. No ductal dilation. Spleen: Normal. No splenomegaly. Adrenal glands: Normal. No mass. Kidneys and ureters: Normal. No hydronephrosis. Stomach and bowel: Large midline abdominal wall hernia containing gas-filled distended loop of transverse colon. Fluid is noted throughout the colon and rectum consistent with history of diarrhea. Dilated stomach and proximal small bowel loops with bowel caliber gradually tapering to normal. A partial or early obstruction is considered. Appendix: No evidence of appendicitis. Intraperitoneal space: Unremarkable. No free air. No significant fluid collection. Vasculature: Atherosclerotic disease of the coronary arteries. Lymph nodes: Unremarkable. No enlarged lymph nodes. Urinary bladder: Unremarkable as visualized. Reproductive: Prostate brachytherapy seeds in place. Bones/joints: Large sclerotic lesion involving L3 vertebral body. Smaller similar appearing lesion involving L4 vertebra. Appearance is concerning for metastatic disease. Multilevel degenerative disease and facet hypertrophy of the thoracolumbar spine. Soft tissues: Unremarkable. IMPRESSION: Large midline abdominal wall hernia containing gas-filled distended loop of transverse colon. Fluid is noted throughout the colon and rectum consistent with history of diarrhea. Dilated stomach and proximal small bowel loops with bowel caliber gradually tapering to normal. A partial or early obstruction is considered. Interval development of sclerotic lesions involving L3 and L4 vertebral bodies concerning for metastatic prostate cancer. Hepatomegaly and steatosis. Cholelithiasis. No specific evidence of acute cholecystitis. Electronically signed by: Akshat Abarca On 01/29/2020 04:14:55 AM INDICATION: post intubation. COMPARISON: February 12, 2008.. TECHNIQUE: Portable supine AP radiograph. FINDINGS: Endotracheal tube is seen in good position at the level of the proximal clavicles. NG tube enters the left upper quadrant of the abdomen and is seen coursing off the field of view in the gastric body. Monitoring electrodes are noted. Mildly prominent heart is seen. There are linear opacities in the perihilar regions bilaterally consistent with platelike atelectasis. No infiltrate is seen. Pleural angles are sharp. There is no evidence of pulmonary edema. IMPRESSION: Endotracheal and nasogastric tubes in good position. There is a surgical clip in the right for paratracheal region. Platelike atelectasis in the perihilar regions. Otherwise negative. INDICATION: tania. COMPARISON: Noncontrast CT abdomen pelvis 01/29/2020 TECHNIQUE: Transabdominal scanning of the kidneys and bladder. FINDINGS: The right kidney is 10.0 x 4.8 x 5.6 cm and has normal cortical thickness and echogenicity there are some echogenic vessels in the renal sinus and increased sinus fat. No hydronephrosis or hydroureter evident. No renal mass or stone visible. The left kidney is 10.9 x 5.7 x 5.7 cm. Cortical thickness and echogenicity also appear normal echogenic vessels in the renal sinus with increased sinus fat noted there is no hydronephrosis, hydroureter, renal stone, cyst or solid mass. The bladder showed no gross abnormality on limited scanning. IMPRESSION: 1. Normal renal size, cortical thickness and echogenicity. 2. Echogenic vessels in the renal sinus and sinus lipomatosis evident. No stone, mass or cyst. 3. No hydronephrosis or hydroureter. Bladder grossly normal. INDICATION: Central Line Placement. COMPARISON: AP portable chest 01/29/2020 at 6:11 a.m. TECHNIQUE: Single AP portable chest view. FINDINGS: Endotracheal tube and nasogastric tubes are unchanged. There is a new right subclavian central venous catheter with tip extending into the right atrium. The bladder level of inflation with lessening of the atelectatic changes seen bilaterally. There is no pneumothorax, effusion or definite acute infiltrate. Less widening of mediastinum with better level of inflation. Some calcified aortic arch without gross aneurysm. Heart size not grossly enlarged for this AP portable exam. IMPRESSION: 1. There is a new right subclavian central catheter with tip in the right atrium. No evidence of pneumothorax or right effusion. 2. Better level of inflation with decreased linear and subsegmental atelectasis. No dense consolidation, edema or gross cardiomegaly. DISPOSITION: 20 . DISCHARGE CONDITION: TIME SPENT ON DISCHARGE: Greater than 40 minutes. Vital Signs/I&Os Vital Signs Date Time Temp Pulse Resp B/P (MAP) Pulse Ox O2 Delivery O2 Flow Rate FiO2 01/29/20 19:05 0 0 01/29/20 19:03 40/21 (27) 01/29/20 18:15 98 Ventilator 40 01/29/20 16:00 98.5 01/29/20 04:01 3.0 I&O- Last 24 Hours up to 6 AM 01/30/20 06:00 Intake Total 1464.2 ml Output Total 275 ml Balance 1189.2 ml Laboratory Data Labs 24H Laboratory Tests 2 01/29/20 09:33: Blood Gas Bicarbonate Standard 15.8L, Arterial Blood pH 7.250L, Arterial Blood Partial Pressure CO2 36.0, Arterial Blood Partial Pressure O2 85.1, Arterial Blood Total CO2 16.5L, Arterial Blood HCO3 15.4L, Arterial Blood Base Excess - 10.9L, Arterial Blood Oxygen Saturation 95.4 01/29/20 10:45: Bedside Glucose (Misc Panel) 323H 01/29/20 13:19: Prothrombin Time 37.6H, Prothromb Time International Ratio 3.71, Activated Partial Thromboplast Time 39.8H, Fibrinogen 1044H, D-Dimer, Quantitative 4000.00H 01/29/20 14:20: Bedside Glucose (Misc Panel) 327H 01/29/20 15:05: Blood Gas Bicarbonate Standard 16.7L, Arterial Blood pH 7.307L, Arterial Blood Partial Pressure CO2 31.4L, Arterial Blood Partial Pressure O2 92.1, Arterial Blood Total CO2 16.3L, Arterial Blood HCO3 15.3L, Arterial Blood Base Excess - 9.7L, Arterial Blood Oxygen Saturation 96.4 01/29/20 15:43: Troponin I 0.10# 01/29/20 17:03: Bedside Glucose (Misc Panel) 390H 01/29/20 18:38: Anion Gap 15, Glomerular Filtration Rate 12.7L, Calcium Level 7.4L, Magnesium Level 2.3, Total Bilirubin 0.7, Aspartate Amino Transf (AST/SGOT) 74H, Alanine Aminotransferase (ALT/SGPT) 158H, Alkaline Phosphatase 80, Total Protein 5.8L, Albumin 1.6L, Albumin/Globulin Ratio 0.4 CBC/BMP Laboratory Tests 01/29/20 18:38 FSBS Laboratory Tests Test 01/29/20 10:45 01/29/20 14:20 01/29/20 17:03 Range/Units Bedside Glucose (Misc Panel) 323 327 390 83-110 MG/DL Microbiology Microbiology 01/29/20 Campylobacter (PCR), Received Pending 01/29/20 Clostridium difficile Toxin A&B PCR, Received Pending 01/29/20 Plesiomonas shigelloides (PCR), Received Pending 01/29/20 Salmonella (PCR)(BUDDY), Received Pending 01/29/20 Vibrio Species (PCR), Received Pending 01/29/20 Vibrio Cholerae (PCR), Received Pending 01/29/20 Yersinia enterocolitica (PCR), Received Pending 01/29/20 Enteroaggregative E. coli (PCR), Received Pending 01/29/20 Enteropathogenic E. coli (PCR), Received Pending 01/29/20 Enterotoxigenic E. coli (PCR), Received Pending 01/29/20 E. coli Shiga-like Toxin (PCR), Received Pending 01/29/20 Escherichia coli 0157 (PCR), Received Pending 01/29/20 Enteroinvasive E. coli/Shigella PCR, Received Pending 01/29/20 Cryptosporidium (PCR), Received Pending 01/29/20 Cyclospora cayetanensis (PCR), Received Pending 01/29/20 Entamoeba histolytica (PCR), Received Pending 01/29/20 Giardia lamblia (PCR), Received Pending 01/29/20 Adenovirus Type F 40/41 (PCR), Received Pending 01/29/20 Astrovirus (PCR), Received Pending 01/29/20 Norovirus GI/GII (PCR), Received Pending 01/29/20 Rotavirus A (PCR), Received Pending 01/29/20 Sapovirus I/II/IV/V (PCR), Received Pending 01/29/20 Blood Culture - Preliminary, Resulted No growth after 24 hours . All specim... 01/29/20 Blood Culture - Preliminary, Resulted No growth after 24 hours . All specim... Discharge Medications Scheduled Amitriptyline HCl (Amitriptyline HCl) 100 Mg Tablet, 100 MG PO QPM, (Reported) Ascorbic Acid (C Complex) 500 Mg Tablet.er, 1 TAB PO DAILY, (Reported) Aspirin (Aspirin EC) 81 Mg Tablet.dr, 81 MG PO QHS, (Reported) Atorvastatin Calcium (Atorvastatin Calcium) 20 Mg Tablet, 20 MG PO DAILY, (Reported) Calcium Carb, Citrate/Vit D3 (Calcium + D3 ER Tablet) 1 Each Tablet.er, 1 TAB PO DAILY, (Reported) Canagliflozin (Invokana) 300 Mg Tablet, 300 MG PO DAILY, (Reported) Chlorthalidone (Chlorthalidone) 25 Mg Tablet, 25 MG PO DAILY, (Reported) Clopidogrel Bisulfate (Clopidogrel) 75 Mg Tablet, 75 MG PO DAILY, (Reported) Dexamethasone (Dexamethasone) 4 Mg Tablet, 2 TABS PO ASDIRECTED take 2 tabs by mouth daily the day before chemo, the day of chemo, and the day after chemo Diphenhydramine HCl (Benadryl) 25 Mg Capsule, 25 MG PO DAILY, (Reported) Etodolac (Etodolac) 300 Mg Capsule, 600 MG PO BID for pain, (Reported) Glipizide (Glipizide Xl) 5 Mg Tab.er.24, 10 MG PO BID, (Reported) Metformin HCl (Metformin HCl) 1,000 Mg Tablet, 1,000 MG PO BID, (Reported) Metoprolol Tartrate (Metoprolol Tartrate) 50 Mg Tablet, 50 MG PO BID, (Reported) Multivitamin (Multivitamins) 1 Each Capsule, 1 CAP PO DAILY, (Reported) Ipava-3/Dha/Epa/Fish Oil (Fish Oil 1,000 mg Softgel) 1 Each Capsule, 1 CAP PO DAILY, (Reported) Omeprazole (Omeprazole) 20 Mg Capsule.dr, 20 MG PO BID, (Reported) Oxybutynin Chloride (Oxybutynin Chloride) 5 Mg Tablet, 5 MG PO BID, (Reported) Tamsulosin HCl (Flomax) 0.4 Mg Capsule, 0.4 MG PO BID, (Reported) Scheduled PRN Albuterol Sulfate (Albuterol Sulfate Hfa) 8.5 Gm Hfa.aer.ad, 2 PUFFS INH Q4-6HP PRN for SHORTNESS OF BREATH, (Reported) Ondansetron HCl (Ondansetron HCl) 8 Mg Tablet, 8 MG PO Q8HP PRN for NAUSEA OR VOMITING Oxycodone HCl (Oxycodone HCl) 5 Mg Tablet, 10 MG PO QID PRN for pain, (Reported) Prochlorperazine Maleate (Prochlorperazine Maleate) 10 Mg Tablet, 10 MG PO Q8HP PRN for NAUSEA OR VOMITING Miscellaneous Medications Leuprolide Acetate (Lupron Depot) 45 Mg Syringekit, 45 MG IM, (Reported) Allergies Coded Allergies: leuprolide (Verified Adverse Reaction, Intermediate, nausea, vomiting, dizzy, 01/22/20) [note: patient can tolerate IM leuprolide (from Lupron)] GME ATTESTATION GME ATTESTATION My faculty preceptor for this patient encounter was physically present during the encounter and was fully available. All aspects of the patient interview, examination, medical decision making process, and medical care plan development were reviewed and approved by the faculty preceptor. The faculty preceptor is aware and concurs with the plan as stated in the body of this note and will att est to such by his/her cosignature. ATTENDING NOTE Patient was seen and examined by me personally with the residents/ students. I agree with the above assessment and plan ARTURO FOY DO Jan 30, 2020 09:15 MARY HWANG MD Jan 30, 2020 12:49
--- NOTE | 2020-01-31 07:05 | RO ---
DATE OF OPERATION: 01/29/[address] Mack Nichols, Internal Medicine Resident PGY-3. Attending: Jesus Manuel Rodríguez MD of Pulmonary Critical Care Medicine. PREOPERATIVE DIAGNOSIS: Septic Shock Requiring Vascular Access POSTOPERATIVE DIAGNOSIS: Septic Shock Requiring Vascular Access PROCEDURE: Right subclavian central line placement. INDICATION: Hypotension, shock, need for vascular access. PROCEDURALIST: Dr. Mack Nichols ATTENDING PHYSICIAN: Dr. Jesus Manuel Rodríguez, in attendance CONSENT: Obtained from the patient's family prior to the procedure. PROCEDURE SUMMARY: My hands were washed immediately prior to the procedure. I wore a surgical cap and mask. The patient was placed in Trendelenburg position. The right chest region was prepped using chlorhexidine scrub and draped in a sterile fashion using a full drape. Anesthesia was achieved using 1% Lidocaine. An introducer needle was inserted approximately 2 cm lateral and 1 cm inferior to the normal curvature of the patient's right clavicle. Venous blood was withdrawn. Syringe was removed and guidewire was advanced into the introducer needle. A small incision was made at the skin surface with the scalpel and the introducer needle was exchanged for a dilator over guidewire. After appropriate dilation was obtained, the guidewire was exchanged over the wire for a central venous catheter. The wire was removed and the catheter was sutured in place. Sterile SorbaView shield was placed over the catheter at the insertion site. The patient tolerated the procedure well without any hemodynamic compromise. At the time of the procedure completion, all ports were aspirated and flushed properly. A post-procedure x-ray was obtained demonstrating good position of the central venous catheter. [facility]
== END 2020-01-29 20:53 | disposition expired | DRG 871 ==
LOC: M ED 01:48 → M ED INP 05:16 → ENRESERV 05:40 → M ICU 08:40
PROVIDERS: ADMIT Internal Medicine; ATTEND Internal Medicine
PROC: 02HV33Z Insertion of Infusion Device into Superior Vena Cava, Percutaneous Approach (ICD-10-PCS; principal; 2020-01-29)
PROC: 5A1935Z Respiratory Ventilation, Less than 24 Consecutive Hours (ICD-10-PCS; 2020-01-29)
DX: A41.9 Sepsis, unspecified organism (principal); K72.00 Acute and subacute hepatic failure without coma; J96.01 Acute respiratory failure with hypoxia; R65.21 Severe sepsis with septic shock; N17.9 Acute kidney failure, unspecified; J44.1 Chronic obstructive pulmonary disease with (acute) exacerbation; C78.89 Secondary malignant neoplasm of other digestive organs; E87.2 Acidosis; I46.9 Cardiac arrest, cause unspecified; I48.91 Unspecified atrial fibrillation; C61 Malignant neoplasm of prostate; Z66 Do not resuscitate; Z79.899 Other long term (current) drug therapy; Z86.73 Personal history of transient ischemic attack (TIA), and cerebral infarction without residual deficits; E11.9 Type 2 diabetes mellitus without complications; M19.90 Unspecified osteoarthritis, unspecified site; Z96.652 Presence of left artificial knee joint; D64.9 Anemia, unspecified; R19.7 Diarrhea, unspecified; E66.9 Obesity, unspecified; E87.6 Hypokalemia; D70.2 Other drug-induced agranulocytosis; E83.51 Hypocalcemia; I25.10 Atherosclerotic heart disease of native coronary artery without angina pectoris; Z79.01 Long term (current) use of anticoagulants; I10 Essential (primary) hypertension; Z51.5 Encounter for palliative care